=== PATIENT | female | born 1980 | race Caucasian/White ===

== ENCOUNTER 2019-12-07 01:59 | Emergency (ER) | payer OTHER, SELFPAY ==
[2019-12-07 02:10] VITALS: BP 120/81; PULSE 98; RESP 16; TEMP 37.4; O2SAT 94; BMI 29.8
--- NOTE | 2019-12-07 02:14 | XRR_ITS ---
PROCEDURE INFORMATION: Exam: XR Right Wrist Exam date and time: 12/07/2019 2:32 AM Age: 39 years old Clinical indication: Injury or trauma; Fall; Initial encounter; Blunt trauma (contusions or hematomas; Wrist; Right TECHNIQUE: Imaging protocol: XR Right wrist. Views: 3 or more views. COMPARISON: No relevant prior studies available. FINDINGS: Bones/joints: There is a transverse to slightly obliquely oriented fracture through the distal right radial metaphyseal region. No obvious extension into the radiocarpal joint surface. 2-3 mm of dorsal displacement of the distal fragment. I suspect there is also a subtle, nondisplaced fracture of the ulnar styloid. No other significant acute bone or joint abnormality. Carpal bones appear in satisfactory alignment. XR/XR wrist RT min 3V* [id number] IMPRESSION: 1. Fracture of the distal radius, details above. 2. Suspect a subtle, nondisplaced fracture of the ulnar styloid.
--- NOTE | 2019-12-07 02:20 | ED_ITS ---
HPI - Extremity Problem General: Chief complaint: Extremity Injury, Upper Stated complaint: fall/right wrist injury Time Seen by Provider: 12/07/19 02:13 Source: patient Mode of arrival: ambulatory Limitations: no limitations History of Present Illness: HPI Narrative: Patient comes in for injury to the right wrist. Patient states she slipped while getting out of the bathtub at home. Patient appears well. Patient reports dorsal wrist pain. No obvious deformity is noted. Patient states she takes metoprolol tartrate for her blood pressure. Review of Systems General: Reports: 10 or more systems reviewed and unremarkable except in HPI and below Musc: Reports: joint pain (Right wrist pain) PFS ED PFSH: Social History Smoking and tobacco status: current every day smoker Physical Exam Const: COMMON NORMALS: no acute distress and patient oriented x3 GENERAL APPEARANCE: cooperative HENMT: COMMON NORMALS: normocephalic, TM's normal bilaterally and Normal external nose present HEAD & SCALP: normal to inspection and normocephalic NOSE: Normal external nose present TYMPANIC MEMBRANE: TM's normal bilaterally MOUTH: Normal oral and palatal mucosa present THROAT: posterior oropharynx normal Eye: GENERAL EYE: appearance normal, both eyes and all related structures Neck/C-Spine: COMMON NORMALS: full ROM Lymph: LYMPHATIC: no lymphadenopathy noted Chest: COMMONS NORMALS: normal inspection of the chest Resp: COMMON NORMALS: normal respiratory effort EFFORT & INSPECTION: Yes able to speak in complete sentences Cardio: COMMON NORMALS: regular rate and regular rhythm RATE: regular rate RHYTHM: regular rhythm GI: COMMON NORMALS: non-tender : COMMON NORMALS: Yes no CVA tenderness BLADDER/KIDNEY EXAM: Yes no CVA tenderness Back/Pelvis: COMMON NORMALS: no CVA tenderness and thoracic and lumbar spine normal to inspection Extremity: NARRATIVE EXTREMITY EXAM: Minimal swelling is noted to the right wrist. Guarded movement. Positive pulses and distal cap refill are intact. No deformity is noted. Neuro: COMMON NORMALS: patient oriented x3 and moves all extremities Psych: COMMON NORMALS: mental status grossly normal and cooperative Skin: COMMON NORMALS: no rashes or lesions noted GENERAL SKIN EXAM: no rashes or lesions noted Course Vital Signs: Vital signs: Vital Signs Temperature 99.4 F 12/07/19 02:10 Pulse Rate 98 12/07/19 02:10 Respiratory Rate 16 12/07/19 02:10 Blood Pressure 120/81 12/07/19 02:10 Pulse Oximetry 94 12/07/19 02:10 MDM - Extremity (Nontraumatic) MDM Narrative: Medical decision making narrative: Patient comes in for injury to the right wrist. On exam patient has tenderness in the distal forearm right wrist area. Patient has reduced range of motion due to pain. Pulses are intact and prompt capillary refill is noted. Differential diagnosis includes but not limited to sprain, fracture, contusion. X-ray noted a distal fracture of the radius and ulnar styloid fracture. Patient was placed into a sugar tong splint and arrangements were made for patient to follow-up with orthopedics through case management. Patient reported understanding agreed to plan. Discharge Plan Discharge Patient Disposition: Home, Self-Care Clinical Impression: Fracture of wrist Qualifiers: Encounter type: initial encounter Fracture type: closed Laterality: right Qualified Code(s): S62.101A - Fracture of unspecified carpal bone, right wrist, initial encounter for closed fracture Condition: Stable Prescriptions: New hydrocodone-acetaminophen 5-325 mg tablet 1 tab PO Q8H PRN (Reason: pain) Qty: 7 RF: 0 Discharge Orders: Discharge Order (Routine); Ordered 12/07/19 Ordered By: Chevy Schmidt Referrals: Raza De La Rosa DO [Primary Care Provider] - Discharge Diet: Usual diet Discharge Activity: Increase activity as tolerated Patient Instructions: Wrist Fracture in Adults (ED) Activity Restrictions/Additional Instructions: Keep splint in place. Keep splint clean and dry. Use sling for comfort. Use Tylenol and ibuprofen for pain. Use hydrocodone for breakthrough pain. Case management will contact you for follow-up appointment with orthopedics. Coding Level of Care Code ED Pressure Testing Technician for Gemma Verma Exam Comprehensive
[2019-12-07] MEDS: HYDROcodone-acetaminophen 7.5-325 mg Tablet 1 TAB PO (02:42)
[2019-12-07 03:08] VITALS: RESP 16
--- NOTE | 2019-12-09 15:58 | DCPLANNER ---
valet manager had message to schedule a follow up appointment for patient with ortho. valet manager called the ortho clinic, spoke with Shobha, gave clinic patients information. valet manager was told that patients information would be printed and reviewed. Clinic will call spring encaser and patient with appointment information.
--- NOTE | 2019-12-10 08:12 | DCPLANNER ---
Patient has a follow up appointment scheduled for , December 11, 2019 at 8:[address] Miranda. Clinic will call patient with appointment information.
--- NOTE | 2019-12-25 12:39 | DCPLANNER ---
Patient attended appointment scheduled for 12.11.19 with ortho.
== END 2019-12-07 03:09 | disposition home or self-care (01) ==
PROVIDERS: Emergency Provider Nurse Practitioner Family; PCP Family Medicine
DX: S52.591A Other fractures of lower end of right radius, initial encounter for closed fracture (principal); W18.2XXA Fall in (into) shower or empty bathtub, initial encounter; F17.210 Nicotine dependence, cigarettes, uncomplicated
CPT/HCPCS: 12345; 29125; 73110; 99281; 99283

== ENCOUNTER → 2019-12-11 08:45 | Outpatient (BNVA) | payer OTHER, SELFPAY | PROVIDERS: PCP Family Medicine; Referring Provider Nurse Practitioner Family; Visit Provider Orthopaedic Surgery | DX: S62.101A Fracture of unspecified carpal bone, right wrist, initial encounter for closed fracture (principal); X58.XXXA Exposure to other specified factors, initial encounter | CPT/HCPCS: 73110 ==

== ENCOUNTER 2019-12-11 11:55 | Outpatient (CLI) | payer OTHER, SELFPAY | END 2019-12-11 11:56 | disposition home or self-care (01) | LOC: SPT 11:55 | PROVIDERS: PCP Family Medicine; Visit Provider Specialist | DX: Z46.89 Encounter for fitting and adjustment of other specified devices (principal); S52.551D Other extraarticular fracture of lower end of right radius, subsequent encounter for closed fracture with routine healing; X58.XXXD Exposure to other specified factors, subsequent encounter | CPT/HCPCS: 97760; L3982 ==

== ENCOUNTER → 2019-12-18 15:08 | Outpatient (BNVA) | payer OTHER, SELFPAY | PROVIDERS: PCP Family Medicine; Visit Provider Orthopaedic Surgery | DX: S62.101A Fracture of unspecified carpal bone, right wrist, initial encounter for closed fracture (principal); X58.XXXA Exposure to other specified factors, initial encounter | CPT/HCPCS: 73110 ==

== ENCOUNTER → 2020-01-01 15:30 | Outpatient (BNVA) | payer OTHER, SELFPAY | PROVIDERS: PCP Family Medicine; Visit Provider Orthopaedic Surgery | DX: S62.101A Fracture of unspecified carpal bone, right wrist, initial encounter for closed fracture (principal); S52.501A Unspecified fracture of the lower end of right radius, initial encounter for closed fracture; S52.591A Other fractures of lower end of right radius, initial encounter for closed fracture; X58.XXXA Exposure to other specified factors, initial encounter | CPT/HCPCS: 73110 ==

== ENCOUNTER 2020-09-12 22:38 | Emergency (ER) | payer OTHER, SELFPAY ==
[2020-09-12 22:44] VITALS: BP 163/102; PULSE 88; RESP 18; TEMP 36.7; O2SAT 98; BMI 27.4
--- NOTE | 2020-09-12 22:52 | XRR_ITS ---
PROCEDURE INFORMATION: Exam: XR Chest Exam date and time: 09/12/2020 11:09 PM Age: 40 years old Clinical indication: Type not specified; Patient HX: Chest pain post covid; Additional info: Cp TECHNIQUE: Imaging protocol: XR of the chest Views: 1 view. COMPARISON: No relevant prior studies available. FINDINGS: Lungs: No pneumonia or pulmonary edema. Pleural spaces: No pleural effusion or pneumothorax. Heart/Mediastinum: The cardiac silhouette is not enlarged. The mediastinal contours are normal. Bones/joints: No acute osseous abnormality. XR/XR chest 1V portable [id number] IMPRESSION: No acute abnormality.
[2020-09-12 22:53] VITALS: BP 159/98; PULSE 70; RESP 19; O2SAT 97
--- NOTE | 2020-09-12 22:53 | ECG_ITS ---
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
[2020-09-12 23:28] LABS: Basophils # 0.1 10^3/uL (0.0-0.1); Basophils % 0.8 %; Eosinophils # 0.1 10^3/uL (0.0-0.8); Hematocrit 41.6 % (37.0-47.0); Hemoglobin 13.9 g/dL (11.5-15.3); Lymphocytes # 3.3 10^3/uL (0.8-4.8); Lymphocytes % 51.9 %; Mean Corpuscular HGB Conc 33.4 g/dL (30.0-36.0); Mean Corpuscular Hemoglobin 32.6 pg (28.0-34.0); Mean Corpuscular Volume 97.7 fL (81-99); Mean Platelet Volume 10.5 fL (7.4-10.4); Monocytes # 0.5 10^3/uL (0.2-0.9); Monocytes % 8.1 %; Neutrophils # 2.37 10^3/uL (1.8-7.7); Neutrophils % 36.9 %; Nucleated Red Blood Cells % 0 %; Platelet Count 238 10^3/cmm (130-400); Red Blood Count 4.26 10^6/uL (4.1-5.3); Red Cell Distribution Width 11.7 % (12.1-15.1); White Blood Count 6.4 10^3/uL (4.0-10.0)
[2020-09-12 23:46] LABS: D Dimer 0.37 ug/mIFEU (0-0.59)
--- NOTE | 2020-09-12 23:46 | ED_ITS ---
HPI - Chest Pain General: Chief Complaint: Chest Pain Stated Complaint: chest pain post covid Time Seen by Provider: 09/12/20 22:52 History of Present Illness: HPI narrative: 89-year-old female who tested positive for Covid on September 03. She was quarantine until Sunday. She had previous symptoms of nasal congestion, exhaustion, loss of smell and taste, and diarrhea. She presents with chest pain that started last night. It is an ache that is in the left side of her chest and radiates to her left shoulder. She is somewhat short of breath with it. Deep breathing does not worsen the chest pain. No fever. Minimal cough. MD complaint: chest pain Pertinent past history: other Onset (ago): day(s) Timing of current episode: constant Prior episodes: No Onset: during rest Pain location: left chest Pain radiation: left shoulder Severity: moderate Quality: aching Relieving factors: nothing Exacerbating factors: nothing Context: recent illness Associated symptoms: Reports dyspnea; Deny abdominal pain, fever(s), leg edema, nausea, palpitations or vomiting Treatment prior to arrival: none Review of Systems Const: Denies: fever(s) Eyes: Denies: change in vision ENMT: Reports: sinus pain; Denies: odynophagia, swelling of lips/tongue or post nasal drip Card: Denies: palpitations Resp: Reports: dyspnea GI: Denies: abdominal pain, nausea or vomiting : Denies: dysuria or hematuria Musc: Denies: back pain Skin/Breast: Denies: rash or erythema Neuro: Reports: headache(s); Denies: dizziness or vertigo Psych: Denies: anxiety PFSH ED PFSH: Social History Smoking and tobacco status: current every day smoker Physical Exam Const: GENERAL APPEARANCE: well developed ORIENTATION/CONSCIOUSNESS: Yes oriented to person, Yes oriented to place and Yes oriented to time HENMT: COMMON NORMALS: normocephalic, external ears normal and Normal external nose present HEAD & SCALP: normocephalic FACE & SINUS: normal facial exam NOSE: Normal external nose present and No nasal discharge present EXTERNAL EAR: Yes external ears normal Eye: COMMON NORMALS: Equal, round and reactive pupils present, EOMs intact bilaterally and conjunctivae normal EYELID: eyelids normal CONJUNCTIVA: Yes conjunctivae normal PUPIL: Yes Equal, round and reactive pupils present Neck/C-Spine: GENERAL: No tracheal deviation Chest: COMMONS NORMALS: normal inspection of the chest CHEST: No tenderness Resp: COMMON NORMALS: clear to auscultation bilaterally EFFORT & INSPECTION: No tachypneic, No respiratory distress, No retractions, No uses accessory muscles and No tracheal deviation AUSCULTATION: clear to auscultation bilaterally, no rhonchi, no wheezes and lung sounds not diminished Cardio: COMMON NORMALS: regular rate and regular rhythm RATE: regular rate RHYTHM: regular rhythm HEART SOUNDS: no murmurs PERIPHERAL PULSES: radial pulses present GI: INSPECTION: No abdominal distension AUSCULTATION: No Hyperactive bowel sounds present and No Hypoactive bowel sounds present PALPATION: No Guarding due to palpation present (GI) and No Rigid due to palpation PERCUSSION: no dullness to percussion and no tympanic to percussion Neuro: SENSORIUM/ORIENTATION: Yes oriented to person, Yes oriented to place and Yes oriented to time Psych: COMMON NORMALS: mental status grossly normal Skin: COMMON NORMALS: no rashes or lesions noted GENERAL SKIN EXAM: no rashes or lesions noted Course Vital Signs: Vital signs: Vital Signs Temperature 98.1 F 09/13/20 01:20 Pulse Rate 87 09/13/20 01:32 Respiratory Rate 18 09/13/20 01:32 Blood Pressure 127/61 09/13/20 01:20 Pulse Oximetry 96 09/13/20 01:32 MDM - Chest Pain MDM Narrative: Medical decision making narrative: Chest x-ray is clear of infiltrate, although there is some perihilar streaking inflammation. Lab work including troponin and D-dimer is normal. Because of findings, she will go home on steroids. Inhaler if needed. She knows to return for any worsening symptoms. Lab Data: Labs: Lab Results 09/12/20 09/12/20 09/12/20 Range/Units 23:20 23:20 23:20 WBC 6.4 (4.0-10.0) 10^3/ uL RBC 4.26 (4.1-5.3) 10^6/u L Hgb 13.9 (11.5-15.3) g/dL Hct 41.6 (37.0-47.0) % MCV 97.7 (81-99) fL MCH 32.6 (28.0-34.0) pg MCHC 33.4 (30.0-36.0) g/dL RDW 11.7 L (12.1-15.1) % Plt Count 238 (130-400) 10^3/c mm MPV 10.5 H (7.4-10.4) fL Neut % (Auto) 36.9 % Lymph % (Auto) 51.9 % Collier % (Auto) 8.1 % Eos % (Auto) 2.0 % Baso % (Auto) 0.8 % Neut # (Auto) 2.37 (1.8-7.7) 10^3/u L Lymph # (Auto) 3.3 (0.8-4.8) 10^3/u L Collier # (Auto) 0.5 (0.2-0.9) 10^3/u L Eos # (Auto) 0.1 (0.0-0.8) 10^3/u L Baso # (Auto) 0.1 (0.0-0.1) 10^3/u L Nucleated RBC % (a uto) 0 % Nucleated RBCs # 0.0 /100WBC D-Dimer 0.37 (0-0.59) ug/mIFE U Sodium 139 (136-145) mmol/L Potassium 4.5 (3.5-5.1) mmol/L Chloride 106 (98-107) mmol/L Carbon Dioxide 23 (22-29) mmol/L Anion Gap 14.5 (5-19) BUN 15 (6-20) mg/dL Creatinine 0.9 (0.5-0.9) mg/dL GFR Calculation 70.1 L (90-130) mL/min Glucose 104 (65-115) mg/dL Calculated Osmolal ity 289 (285-295) mOsm/k g Calcium 9.1 (8.5-10.5) mg/dL Total Bilirubin 0.2 (0.15-1.2) mg/dL AST 59 H (0-32) U/L ALT 106 H (0-33) U/L Alkaline Phosphata se 74 (35-105) IU/L Creatine Kinase 52 (26-192) U/L Troponin T Baselin e (0-10) ng/L NT-Pro-B Natriuret Pep 72 (0-125) pg/mL Total Protein 6.6 (6.6-8.7) g/dL Albumin 4.2 (3.5-5.2) g/dL Globulin 2.4 (1.3-4.6) g/dL HCG, Qual (Negative) 09/12/20 09/12/20 Range/Units 23:20 23:49 WBC (4.0-10.0) 10^3/ uL RBC (4.1-5.3) 10^6/u L Hgb (11.5-15.3) g/dL Hct (37.0-47.0) % MCV (81-99) fL MCH (28.0-34.0) pg MCHC (30.0-36.0) g/dL RDW (12.1-15.1) % Plt Count (130-400) 10^3/c mm MPV (7.4-10.4) fL Neut % (Auto) % Lymph % (Auto) % Collier % (Auto) % Eos % (Auto) % Baso % (Auto) % Neut # (Auto) (1.8-7.7) 10^3/u L Lymph # (Auto) (0.8-4.8) 10^3/u L Collier # (Auto) (0.2-0.9) 10^3/u L Eos # (Auto) (0.0-0.8) 10^3/u L Baso # (Auto) (0.0-0.1) 10^3/u L Nucleated RBC % (a uto) % Nucleated RBCs # /100WBC D-Dimer (0-0.59) ug/mIFE U Sodium (136-145) mmol/L Potassium (3.5-5.1) mmol/L Chloride (98-107) mmol/L Carbon Dioxide (22-29) mmol/L Anion Gap (5-19) BUN (6-20) mg/dL Creatinine (0.5-0.9) mg/dL GFR Calculation (90-130) mL/min Glucose (65-115) mg/dL Calculated Osmolal ity (285-295) mOsm/k g Calcium (8.5-10.5) mg/dL Total Bilirubin (0.15-1.2) mg/dL AST (0-32) U/L ALT (0-33) U/L Alkaline Phosphata se (35-105) IU/L Creatine Kinase (26-192) U/L Troponin T Baselin e 6 (0-10) ng/L NT-Pro-B Natriuret Pep (0-125) pg/mL Total Protein (6.6-8.7) g/dL Albumin (3.5-5.2) g/dL Globulin (1.3-4.6) g/dL HCG, Qual Negative (Negative) Discharge Plan Discharge Patient Disposition: Home Clinical Impression: Acute bronchitis due to COVID-19 virus Condition: Stable Prescriptions: New dexamethasone 6 mg tablet 6 mg PO DAILY Qty: 5 RF: 0 albuterol sulfate 90 mcg/actuation HFA aerosol inhaler 2 inh inhalation Q4H PRN (Reason: shortness of breath or wheezing) Qty: 6.7 RF: 1 No Action (DME) Fast form cock up See Rx Instructions .Route .MEDSUPPLY Qty: 1 RF: 0 hydrocodone-acetaminophen 5-325 mg tablet 1 tab PO Q8H PRN (Reason: pain) Qty: 7 RF: 0 Discharge Orders: Discharge ED (Routine); Ordered 09/13/20 Ordered By: Nicola Finn Referrals: Raza De La Rosa, [Primary Care Provider] - 1-3 days Discharge Diet: Advance as tolerated Discharge Activity: Increase activity as tolerated Patient Instructions: Acute Bronchitis (ED) Activity Restrictions/Additional Instructions: Use the inhaler every 4 hours while awake for the first 48 hours, then as needed. Other medications as directed. Return for worsening chest discomfort or shortness of breath despite treatment, fever greater than 100, other concerning symptoms. Coding Level of Care Code ED Cellars Supervisor for Gemma Fwd Exam Comprehensive
[2020-09-12 23:50] VITALS: BP 126/94; PULSE 71; RESP 20; O2SAT 96
[2020-09-12 23:54] LABS: Troponin(5th) Baseline 6 ng/L (0-10)
[2020-09-13] VITALS: BP 142/80; PULSE 66; RESP 20; O2SAT 97
[2020-09-13 00:03] LABS: Alanine Aminotransferase 106 U/L (0-33); Albumin Level 4.2 g/dL (3.5-5.2); Alkaline Phosphatase 74 IU/L (35-105); Anion Gap 14.5 (5-19); Aspartate Amino Transferase 59 U/L (0-32); Blood Urea Nitrogen 15 mg/dL (6-20); Calcium 9.1 mg/dL (8.5-10.5); Carbon Dioxide 23 mmol/L (22-29); Chloride 106 mmol/L (98-107); Creatine Phosphokinase 52 U/L (26-192); Globulin 2.4 g/dL (1.3-4.6); Glomerular Filtration Rate 70.1 mL/min (90-130); Glucose 104 mg/dL (65-115); NT Pro B Type Natriuretic Pept 72 pg/mL (0-125); Osmolality Calculated 289 mOsm/kg (285-295); Potassium 4.5 mmol/L (3.5-5.1); Sodium 139 mmol/L (136-145); Total Bilirubin 0.2 mg/dL (0.15-1.2); Total Protein 6.6 g/dL (6.6-8.7)
[2020-09-13] MEDS: ketorolac 30 mg/mL INJ IVP (00:11)
[2020-09-13] MEDS: dexamethasone 4 mg/mL INJ 8 MG IVP (00:11)
[2020-09-13] MEDS: ondansetron 2 mg/ML SDV 2 mL 4 MG IVP (00:14)
[2020-09-13 00:26] LABS: HCG, Serum Qual Negative (Negative)
[2020-09-13 01:20] VITALS: BP 127/61; PULSE 67; RESP 20; TEMP 36.7; O2SAT 97
[2020-09-13] MEDS: albuterol 8 gm MDI 2 PUFF INHALATION (01:30)
[2020-09-13 01:32] VITALS: PULSE 87; RESP 18; O2SAT 96
== END 2020-09-13 01:32 | disposition home or self-care (01) ==
PROVIDERS: Emergency Provider Emergency Medicine; PCP Family Medicine
DX: U07.1 COVID-19 (principal); J20.8 Acute bronchitis due to other specified organisms; F17.210 Nicotine dependence, cigarettes, uncomplicated
CPT/HCPCS: 71045; 80053; 82550; 83880; 84484; 84703; 85025; 85378; 93005; 94640; 96374; 96375; 99284; J1100; J1885; J2405; J3535

== ENCOUNTER → 2020-11-16 08:31 | Outpatient (BNVA) | payer OTHER, SELFPAY | PROVIDERS: PCP Family Medicine; Visit Provider Nurse Practitioner Women's Health | DX: Z01.419 Encounter for gynecological examination (general) (routine) without abnormal findings (principal) | CPT/HCPCS: 88175 ==

== ENCOUNTER 2021-11-08 11:01 | Emergency (ER) | payer OTHER, SELFPAY ==
[2021-11-08 11:36] VITALS: BP 139/94; PULSE 97; RESP 14; TEMP 36.9; O2SAT 99; BMI 25.2
[2021-11-08 11:42] VITALS: BP 135/89; RESP 18; O2SAT 96
--- NOTE | 2021-11-08 11:44 | ED_ITS ---
HPI - Abdominal Pain General: Chief Complaint: Abdominal Pain Stated Complaint: Abdominal pain Time Seen by Provider: 11/08/21 11:44 History of Present Illness: Ms. Munoz is a 41-year-old lady with history of hypertension who presents to the emergency department due to right lower quad rant abdominal pain. Over the past few days she did note increased discomfort more in the epigastric region however over the past day and a half or so it migrated to the umbilicus and subsequently to the right lower quadrant. Cramping and aching in quality. Moderate to severe intensity. Worst pain was last night which was worse with movement and severe. She noted mild nausea however no vomiting. She has had intermittent constipation and loose stool with last bowel movement last night. She denies urinary symptoms, vaginal bleeding, vaginal discharge with last menstrual period approximately 2 weeks ago. Does have a history of kidney stones although reports that this feels different. D enies family history of frequent similar in the past. No other specific changes in health, exacerbating, or alleviating factors identified. She saw PCP today who was concerned regarding referred pain with palpation of right lower quadrant to the umbilical region and referred her to emergency department. Pertinent past history: none Onset (ago): day(s) Pain Consistency: constant Location: RLQ Severity: severe Quality: cramping and aching Exacerbating factors: movement Relieving factors: nothing Review of Systems General: Reports: 10 or more systems reviewed and unremarkable except in HPI and below PFSH ED PFSH: Medical History History of COVID-19 (~09/2020) Hypertension No pertinent past medical history neghx: dm,thyroid,dvt/pe PCP: Dr. De La Rosa Surgical History Hx of lithotripsy (~2011) Family History Daughter Thyroid disease Denies family history of Colon cancer Ovarian cancer Diabetes Heart disease Hypercholesteremia Breast cancer Hypertension Uterine cancer Stroke Social History Smoking and tobacco status: current every day smoker Physical Exam Const: COMMON NORMALS: alert GENERAL APPEARANCE: cooperative and well developed HENMT: COMMON NORMALS: normocephalic and atraumatic HEAD & SCALP: normocephalic and atraumatic Eye: COMMON NORMALS: conjunctivae normal CONJUNCTIVA: Yes conjunctivae normal SCLERA: sclerae normal Neck/C-Spine: COMMON NORMALS: supple GENERAL: Yes trachea midline Resp: COMMON NORMALS: normal respiratory effort EFFORT & INSPECTION: Yes able to speak in complete sentences Cardio: COMMON NORMALS: regular rate and regular rhythm RATE: regular rate RHYTHM: regular rhythm GI: COMMON NORMALS: Soft to palpation PALPATION: Yes Soft to palpation, Yes Tenderness to palpation present (GI) Details: RLQ, Yes Guarding due to palpation present (GI), No Rigid due to palpation and No Rebound tenderness present PERCUSSION: normal to percussion Extremity: GENERAL: Yes normal exam except as noted and No edema Neuro: COMMON NORMALS: moves all extremities SENSORIUM/ORIENTATION: Yes alert and No Orientation impaired Psych: COMMON NORMALS: mental status grossly normal and Normal thought process present THOUGHT PROCESS: Normal thought process present Course ED course: - Patient was seen and evaluated by me at bedside - Patient placed on cardiac monitors, IV access obtained - Initial evaluation notable for exam as above - Labs personally interpreted by me -Symptom treatment ordered - Labs notable for no leukocytosis, normal hemoglobin. Metabolic panel without acute derangement. Urinalysis without evidence of cause of symptoms. - Given physical exam findings and reported severity of symptoms I do feel that imaging is warranted. Patient wishes to proceed with imaging after discussion of risks. Imaging notable for no acute finding to explain symptoms. Cysts were discussed with the patient. - Upon serial reexamination after treatment the patient was improved - Based on patient history, evaluation, and testing as interpreted the most likely cause of the patient's condition is abdominal pain of uncertain etiology. - The results of ED evaluation were discussed with the patient including prescriptions and/or symptomatic cares (if applicable) including appropriate and responsible use, followup plan, and return precautions. The patient verbalized understanding and felt safe for discharge. - Patient discharged in satisfactory condition. Note: Click bubbles or prepopulated ozuna in note writing are used for assistance with data collection and billing and are inherently more limited than narrative and other text portions of this note. Please use narrative for additional clinical history and defer to narrative/free test for any case of contradictory information. If information appears in only free text or click bubble it should be considered present or absent as reported. Please contact note newspaper writer for clarifications of clinical information or contradictory information. MDM is a brief summary, contradictory or erroneous seeming information should be clarified and full note should be reviewed. Vital Signs: Vital signs: Vital Signs Temperature 98.5 F 11/08/21 11:36 Pulse Rate 97 11/08/21 11:36 Respiratory Rate 18 11/08/21 12:55 Blood Pressure 135/89 11/08/21 11:42 Pulse Oximetry 96 11/08/21 11:42 MDM - Abdominal Pain Medical Decision Making 41-year-old lady presenting with abdominal pain. No obvious cause identified on ED evaluation. Satisfactory for outpatient management Medical Records I reviewed the patient's medical records. Lab Data I reviewed the patient's lab results. : 11/08/21 11:55 11/08/21 11:55 Labs/Radiology: Radiology Impressions Abdomen/Pelvis CT 11/08/21 12:44 IMPRESSION: 1. Normal appendix in the RIGHT lower quadrant. No evidence of acute appendicitis. 2. No hydronephrosis in either kidney. 3. Peripheral enhancing LEFT ovarian cyst or corpus luteum cyst measuring 1.4 x 1.4 CM. Small amount of fluid in the cul-de-sac. Smaller peripheral enhancing RIGHT ovarian follicles. 4. Small amount of fluid in the endometrial canal and cervix. 5. Mild hepatomegaly with diffuse fatty infiltration liver Laboratory Results WBC 6.5 10^3/uL (4.0-10.0) 11/08/21 11:55 RBC 4.65 10^6/uL (4.1-5.3) 11/08/21 11:55 Hgb 15.1 g/dL (11.5-15.3) 11/08/21 11:55 Hct 45.4 % (37.0-47.0) 11/08/21 11:55 MCV 97.6 fl (81-99) 11/08/21 11:55 MCH 32.5 pg (28.0-34.0) 11/08/21 11:55 MCHC 33.3 g/dL (30.0-36.0) 11/08/21 11:55 RDW 11.8 % (12.1-15.1) L 11/08/21 11:55 Plt Count 273 10^3/cmm (130-400) 11/08/21 11:55 MPV 10.0 fL (7.4-10.4) 11/08/21 11:55 Neut % (Auto) 51.1 % 11/08/21 11:55 Lymph % (Auto) 36.9 % 11/08/21 11:55 [place] % (Auto) 8.4 % 11/08/21 11:55 Eos % (Auto) 2.3 % 11/08/21 11:55 Baso % (Auto) 1.1 % 11/08/21 11:55 Neut # (Auto) 3.30 10^3/uL (1.8-7.7) 11/08/21 11:55 Lymph # (Auto) 2.4 10^3/uL (0.8-4.8) 11/08/21 11:55 [place] # (Auto) 0.5 10^3/uL (0.2-0.9) 11/08/21 11:55 Eos # (Auto) 0.2 10^3/uL (0.0-0.8) 11/08/21 11:55 Baso # (Auto) 0.1 10^3/uL (0.0-0.1) 11/08/21 11:55 Nucleated RBC % (auto) 0 % 11/08/21 11:55 Nucleated RBCs # 0.0 /100WBC 11/08/21 11:55 Sodium 136 mmol/L (136-145) 11/08/21 11:55 Potassium 3.9 mmol/L (3.5-5.1) 11/08/21 11:55 Chloride 100 mmol/L (98-107) 11/08/21 11:55 Carbon Dioxide 23 mmol/L (22-29) 11/08/21 11:55 Anion Gap 16.9 (5-19) 11/08/21 11:55 BUN 19 mg/dL (6-20) 11/08/21 11:55 Creatinine 0.8 mg/dL (0.5-0.9) 11/08/21 11:55 GFR Calculation 79.9 mL/min (90-130) L 11/08/21 11:55 Glucose 90 mg/dL (65-115) 11/08/21 11:55 Calculated Osmolality 284 mOsm/kg (285-295) L 11/08/21 11:55 Calcium 9.6 mg/dL (8.5-10.5) 11/08/21 11:55 Total Bilirubin 0.2 mg/dL (0.15-1.2) 11/08/21 11:55 AST 17 U/L (0-32) 11/08/21 11:55 ALT 20 U/L (0-33) 11/08/21 11:55 Alkaline Phosphatase 63 IU/L (35-105) 11/08/21 11:55 Total Protein 8.1 g/dL (6.6-8.7) 11/08/21 11:55 Albumin 5.0 g/dL (3.5-5.2) 11/08/21 11:55 Globulin 3.1 g/dL (1.3-4.6) 11/08/21 11:55 Lipase 41 U/L (13-60) 11/08/21 11:55 HCG, Qual Negative (Negative) 11/08/21 14:07 Urine Color Yellow (Yellow) 11/08/21 11:22 Urine Appearance Clear (CLEAR) 11/08/21 11:22 Urine pH 6 (5-7) 11/08/21 11:22 Ur Specific [place] 1.015 (1.005-1.030) 11/08/21 11:22 Urine Protein Neg (Negative) 11/08/21 11:22 Urine Glucose (UA) Norm (Normal) 11/08/21 11:22 Urine Ketones Negative (Negative) 11/08/21 11:22 Urine Blood 2+ (Negative) H 11/08/21 11:22 Urine Nitrate Negative (Negative) 11/08/21 11:22 Urine Bilirubin Neg (Negative) 11/08/21 11:22 Urine Urobilinogen Norm mg/dL (Negative) 11/08/21 11:22 Ur Leukocyte Esterase Negative (Negative) 11/08/21 11:22 Urine RBC 0-4 /hpf (0-2) H 11/08/21 11:22 Urine WBC 0-4 /hpf (0-5) H 11/08/21 11:22 Ur Squamous Epith Cells 0-4 /hpf (0-5) H 11/08/21 11:22 Amorphous Sediment Not Reportable 11/08/21 11:22 Urine Bacteria None /hpf (NONE) 11/08/21 11:22 Discharge Plan Discharge Patient Disposition: Home Clinical Impression: Abdominal pain Condition: Stable Prescriptions: New ondansetron 4 mg tablet,disintegrating 4 mg PO Q8H PRN (Reason: nausea and vomiting) Qty: 15 0RF Discharge Orders: Discharge ED (Routine); Ordered 11/08/21 Ordered By: Jose Alfredo Thao Referrals: Raza De La Rosa DO [Primary Care Provider] - Discharge Diet: Advance as tolerated and Clear Liquid Discharge Activity: Increase activity as tolerated Patient Instructions: Abdominal Pain (ED), Opioid Safety Activity Restrictions/Additional Instructions: Thank you for visiting the emergency department. You were seen and evaluated for abdominal pain. The exact cause of your abdominal pain is unclear as no specific source was identified on CT scan or laboratory studies. You did have a small amount of blood in urine so it is possible that this was a recently passed kidney stone as discussed though I do not see secondary evidence of that. Please follow-up with your primary care provider. Please return to the emergency department for uncontrolled pain, worsening symptoms, inability to tolerate oral intake, or anything else that you are concerned about and feel needs emergency department evaluation. Coding Level of Care Code ED Dental Assisting Instructor for Gemma Fwabdulaziz Exam Comprehensive
[2021-11-08 12:08] LABS: Basophils # 0.1 10^3/uL (0.0-0.1); Basophils % 1.1 %; Eosinophils # 0.2 10^3/uL (0.0-0.8); Eosinophils % 2.3 %; Hematocrit 45.4 % (37.0-47.0); Hemoglobin 15.1 g/dL (11.5-15.3); Lymphocytes # 2.4 10^3/uL (0.8-4.8); Lymphocytes % 36.9 %; Mean Corpuscular HGB Conc 33.3 g/dL (30.0-36.0); Mean Corpuscular Hemoglobin 32.5 pg (28.0-34.0); Mean Corpuscular Volume 97.6 fl (81-99); Monocytes # 0.5 10^3/uL (0.2-0.9); Monocytes % 8.4 %; Neutrophils % 51.1 %; Nucleated Red Blood Cells % 0 %; Platelet Count 273 10^3/cmm (130-400); Red Blood Count 4.65 10^6/uL (4.1-5.3); Red Cell Distribution Width 11.8 % (12.1-15.1); White Blood Count 6.5 10^3/uL (4.0-10.0)
[2021-11-08] MEDS: sodium chloride 0.9% 1,000 ML 999 ML IV (12:08)
[2021-11-08 12:09] VITALS: RESP 18
[2021-11-08] MEDS: morphine 4 mg/mL SDV 1 mL IVP ×3 (12:09→14:17)
[2021-11-08 12:22] LABS: Bilirubin Urine Neg (Negative); Blood Urine 2+ (Negative); Glucose Urine UA Norm (Normal); Ketones Urine Negative (Negative); Nitrate Urine Negative (Negative); Protein Urine Neg (Negative); Specific Gravity, Urine 1.015 (1.005-1.030); Urine Appearance Clear (CLEAR); Urine Color Yellow (Yellow); pH Urine 6 (5-7)
[2021-11-08 12:23] LABS: Add Urine Microscopic? YES; Leukocyte Esterase Urine Negative (Negative); Urobilinogen Urine Norm (Negative)
[2021-11-08 12:24] LABS: Add Urine Culture? No; RBC Urine 0-4 /hpf (0-2); Squamous Epithelial Cell Urine 0-4 /hpf (0-5); WBC Urine 0-4 /hpf (0-5)
[2021-11-08 12:32] LABS: Alanine Aminotransferase 20 U/L (0-33); Alkaline Phosphatase 63 IU/L (35-105); Anion Gap 16.9 (5-19); Aspartate Amino Transferase 17 U/L (0-32); Blood Urea Nitrogen 19 mg/dL (6-20); Calcium 9.6 mg/dL (8.5-10.5); Carbon Dioxide 23 mmol/L (22-29); Chloride 100 mmol/L (98-107); Globulin 3.1 g/dL (1.3-4.6); Glomerular Filtration Rate 79.9 mL/min (90-130); Glucose 90 mg/dL (65-115); Lipase 41 U/L (13-60); Osmolality Calculated 284 mOsm/kg (285-295); Potassium 3.9 mmol/L (3.5-5.1); Sodium 136 mmol/L (136-145); Total Bilirubin 0.2 mg/dL (0.15-1.2); Total Protein 8.1 g/dL (6.6-8.7)
--- NOTE | 2021-11-08 12:44 | CT_ITS ---
WS: [id number] CT ABDOMEN PELVIS TECHNIQUE: Contrast-enhanced CT of the abdomen and pelvis with coronal and sagittal reformatted image s. CLINICAL INFORMATION: RLQ abdominal and flank pain, ?appy COMPARISON: CT 10 8,016 DLP: 880.[address] scans at [facility] use at least one of these dose optimization techniques: automated e xposure control; mA and/or kV adjustment per patient size (includes targeted exams where dose is matc hed to clinical indication); or iterative reconstruction. FINDINGS: Mild diffuse fatty infiltration of the liver with mild hepatomegaly. Normal portal vein and splenic v ein. Normal gallbladder. Normal spleen. Adrenal glands are normal. No hydronephrosis in either kidney . Small bilateral renal cysts. Normal caliber abdominal aorta. Normal celiac and SMA. Lung bases are well aerated. Small amount of free fluid in the pelvis. Normal sigmoid colon. No evidence of high-grade small or la rge bowel obstruction. Normal appendix. No evidence of acute appendicitis. Fluid within the endometri al canal and cervix. Enhancing LEFT ovarian cyst or corpus luteum cyst measuring 1.4 x 1.4 CM. Smalle r peripheral enhancing RIGHT ovarian follicles. Tiny fat-containing umbilical hernia. CT/CT abdomen pelvis w con* [id number] IMPRESSION: 1. Normal appendix in the RIGHT lower quadrant. No evidence of acute appendici tis. 2. No hydronephrosis in either kidney. 3. Peripheral enhancing LEFT ovarian cyst or corpus luteum cyst measuring 1.4 x 1.4 CM. Small amount of fluid in the cul-de-sac. Smaller peripheral enhancing RIGHT ovarian follicles. 4. Small amount of fluid in the endometrial canal and cervix. 5. Mild hepatomegaly with diffuse fatty infiltration liver
[2021-11-08 12:55] VITALS: RESP 18
[2021-11-08] MEDS: ondansetron 2 mg/ML SDV 2 mL 4 MG IVP ×2 (14:17→16:06)
[2021-11-08 14:18] LABS: HCG Qualitative Urine. Negative (Negative)
[2021-11-08] MEDS: ketorolac 30 mg/mL INJ 15 MG IVP (16:06)
== END 2021-11-08 16:16 | disposition home or self-care (01) ==
PROVIDERS: Emergency Provider Emergency Medicine; PCP Family Medicine
DX: R10.9 Unspecified abdominal pain (principal); I10 Essential (primary) hypertension; Z86.16 Personal history of COVID-19; Z87.442 Personal history of urinary calculi; F17.210 Nicotine dependence, cigarettes, uncomplicated
CPT/HCPCS: 74177; 80053; 81000; 81001; 81025; 83690; 85025; 96361; 96374; 96375; 96376; 99284; J1885; J2270; J2405; J7030

== ENCOUNTER → 2021-11-17 08:45 | Outpatient (BNVA) | payer OTHER, SELFPAY | PROVIDERS: PCP Family Medicine; Visit Provider Nurse Practitioner Women's Health | DX: Z01.419 Encounter for gynecological examination (general) (routine) without abnormal findings (principal); R31.9 Hematuria, unspecified | CPT/HCPCS: 87086; 87624 ==

== ENCOUNTER → 2023-07-11 14:49 | Outpatient (BNVA) | payer OTHER, SELFPAY | PROVIDERS: PCP Family Medicine; Visit Provider Nurse Practitioner | DX: J02.9 Acute pharyngitis, unspecified (principal) | CPT/HCPCS: 87880 ==

== ENCOUNTER 2023-07-28 12:06 | Observation (INO) | payer OTHER, SELFPAY ==
[2023-07-28] VITALS (18 sets, daily range): BP systolic 107–146; BP diastolic 63–85; PULSE 90–111; RESP 14–22; TEMP 36.4–37; O2SAT 94–99; BMI 28.3
--- NOTE | 2023-07-28 12:43 | CTR_ITS ---
PROCEDURE INFORMATION: Exam: CT Abdomen And Pelvis Without Contrast Exam date and time: 07/28/2023 1:58 PM Age: 43 years old Clinical indication: Abdominal pain; Localized; Right lower quadrant (rlq) TECHNIQUE: Imaging protocol: Computed tomography of the abdomen and pelvis without contrast. Radiation optimization: All CT scans at this facility use at least one of these dose optimization techniques: automated exposure control; mA and/or kV adjustment per patient size (includes targeted exams where dose is matched to clinical indication); or iterative reconstruction. COMPARISON: CT abdomen pelvis w con* [id number] 11/08/2021 2:36 PM RADIATION DOSE METRICS: Total DLP (mGy-cm): 513.16 FINDINGS: Lungs: No significant pathology at the imaged lung bases. Diaphragm: Small hiatal hernia. Liver: Hepatic steatosis. Gallbladder and bile ducts: No significant gallbladder pathology. No biliary dilatation. Pancreas: No significant pancreatic pathology. Spleen: No significant splenic pathology. Adrenal glands: No significant adrenal pathology. Kidneys and ureters: Mild bilateral renal cortical scarring. Stomach and bowel: Moderate amount of colonic stool. Colonic diverticulosis without evidence of focal inflammatory change. Appendix: Abnormal appearance of the appendix including enlargement up to 10 mm with increased luminal fluid, adjacent fat infiltration and appendicoliths (series 5, image 33 and 32) consistent with mild acute appendicitis. No perforation or abscess. Intraperitoneal space: Tiny amount of pelvic ascites. Vasculature: No abdominal aortic aneurysm. Lymph nodes: No enlarged nodes by criteria. Urinary bladder: No significant pathology. Reproductive: No significant uterine or adnexal pathology. Bones/joints: No significant bony pathology. Soft tissues: Small fat containing umbilical hernia. CT/CT abdomen pelvis wo con [id number] IMPRESSION: 1. Acute appendicitis. No perforation or abscess. 2. Minor findings including fatty change of the liver noted above.
--- NOTE | 2023-07-28 12:44 | USR_ITS ---
PROCEDURE INFORMATION: Exam: US Abdomen, Limited; Right Upper Quadrant Exam date and time: 07/28/2023 1:15 PM Age: 43 years old Clinical indication: Abdominal pain; Acute; Additional info: Abd pain TECHNIQUE: Imaging protocol: Real time ultrasound of the abdomen with image documentation. Limited exam focused on the right upper quadrant. COMPARISON: CT abdomen pelvis w con* [id number] 11/08/2021 2:36 PM FINDINGS: Liver: The liver is unremarkable. Gallbladder: No gallstones are detected. There is no gallbladder wall thickening or biliary ductal dilatation. Biliary ducts: See Gallbladder finding. Pancreas: No abnormality detected in the pancreatic head or body. Pancreatic tail was not imaged. Right kidney: No abnormalities detected in the right kidney. The right kidney measures 11.0 cm in length. Vascular structures: The included portions of the inferior vena cava and aorta are unremarkable Portal venous: The portal vein is patent with normal direction of flow. US/US gall bladder [id number] IMPRESSION: 1. Incomplete visualization of the pancreas 2. Right upper quadrant ultrasound otherwise unremarkable
--- NOTE | 2023-07-28 12:47 | W.ED.ABDPA2 ---
HPI - Abdominal Pain General: Chief Complaint: Abdominal Pain Stated Complaint: right side abd pain, N/V Time Seen by Provider: 07/28/23 12:40 Source: patient Mode of arrival: ambulatory History of Present Illness: 43-year-old female who presents to the emergency room with complaint of right-sided abdominal pain localizes to the right lower quadrant. Began about 2 days ago progressively worsened with nausea vomiting unable to eat or drink. Denies fever sweats chills denies dysuria urgency or frequency or hematuria [facility] ED PFSH: Medical History History of COVID-19 (~09/2020) No pertinent past medical history neghx: dm,thyroid,dvt/pe PCP: Dr. De La Rosa Hypertension She was dx 2015 but it was situational. She started metoprolol for that and her elevated HR. She stopped the metoprolol on her own in 2019. She denies any problems since that time. Surgical History Hx of lithotripsy (~2011) Family History Daughter Thyroid disease Denies family history of Colon cancer Ovarian cancer Diabetes Heart disease Hypercholesteremia Breast cancer Hypertension Uterine cancer Stroke Social History Smoking and tobacco/nicotine status: former use of tobacco/nicotine Quit status (tobacco/nicotine): has quit using Year quit tobacco: 2021 Course Vital Signs: Vital signs: Vital Signs Temperature 98.1 F 07/28/23 12:23 Pulse Rate 106 H 07/28/23 12:23 Respiratory Rate 17 07/28/23 14:06 Blood Pressure 107/63 07/28/23 12:23 Pulse Oximetry 97 07/28/23 14:06 Oxygen Delivery Me thod Room Air 07/28/23 12:23 MDM - Abdominal Pain Medical Decision Making Acute appendicitis. Unfortunately went back to the room to talk to the patient about the diagnosis and the CT findings she had been drinking water. She does the nurse earlier about eating or drinking the nurse advised her she could not because of the chief complaint of abdominal pain and pending CT report. Unfortunately at the patient's friend who is in the room brought her a bottle of water she has drank up about 8 ounces of water. I contacted Dr. Godinez about the patient's finding of appendicitis also called him back and advised him that the patient had been drinking water he will come and see the patient scheduled for surgery later today. Differential Diagnosis Likely abdominal pain, acute appendicitis, calculus of kidney and gastroenteritis Medical Records I reviewed the patient's medical records. Lab Data I reviewed the patient's lab results. 07/28/23 13:09 07/28/23 13:09 Labs/Radiology: Radiology Impressions Abdomen/Pelvis CT 07/28/23 12:43 IMPRESSION: 1. Acute appendicitis. No perforation or abscess. 2. Minor findings including fatty change of the liver noted above. ADDENDUM: 07/28/23 [id number] THIS REPORT CONTAINS FINDINGS THAT MAY BE CRITICAL TO PATIENT CARE. The findings were verbally communicated via telephone conference with BENJAMIN DE PAZ at 2:25 PM [employer] on 07/28/2023. The findings were acknowledged and understood. Gallbladder Ultrasound 07/28/23 12:44 IMPRESSION: 1. Incomplete visualization of the pancreas 2. Right upper quadrant ultrasound otherwise unremarkable Laboratory Results WBC 9.98 10^3/uL (3.29-11.43) 07/28/23 13:09 RBC 4.47 10^6/uL (3.85-5.65) 07/28/23 13:09 Hgb 14.20 g/dL (11.27-16.99) 07/28/23 13:09 Hct 42.6 % (36-47) 07/28/23 13:09 MCV 95.3 fl (85-98) 07/28/23 13:09 MCH 31.8 pg (27-33) 07/28/23 13:09 MCHC 33.3 g/dL (30-55) 07/28/23 13:09 RDW 11.6 % (12.1-15.1) L 07/28/23 13:09 Plt Count 276 10^3/cmm (157-399) 07/28/23 13:09 MPV 10.0 fL (7.4-10.4) 07/28/23 13:09 Neut % (Auto) 81.3 % 07/28/23 13:09 Lymph % (Auto) 10.9 % 07/28/23 13:09 [place] % (Auto) 6.1 % 07/28/23 13:09 Eos % (Auto) 0.8 % 07/28/23 13:09 Baso % (Auto) 0.5 % 07/28/23 13:09 Neut # (Auto) 8.11 10^3/uL (1.8-7.7) H 07/28/23 13:09 Lymph # (Auto) 1.1 10^3/uL (0.8-4.8) 07/28/23 13:09 [place] # (Auto) 0.6 10^3/uL (0.2-0.9) 07/28/23 13:09 Eos # (Auto) 0.1 10^3/uL (0.0-0.8) 07/28/23 13:09 Baso # (Auto) 0.1 10^3/uL (0.0-0.1) 07/28/23 13:09 Nucleated RBC % (auto) 0 % 07/28/23 13:09 Nucleated RBCs # 0.0 /100WBC 07/28/23 13:09 Sodium 138 mmol/L (136-145) 07/28/23 13:09 Potassium 4.4 mmol/L (3.5-5.1) 07/28/23 13:09 Chloride 101 mmol/L (98-107) 07/28/23 13:09 Carbon Dioxide 24 mmol/L (22-29) 07/28/23 13:09 Anion Gap 17.4 (5-19) 07/28/23 13:09 BUN 16 mg/dL (6-20) 07/28/23 13:09 Creatinine 0.8 mg/dL (0.5-0.9) 07/28/23 13:09 GFR Calculation 79.0 mL/min (90-130) L 07/28/23 13:09 Glucose 111 mg/dL (65-115) 07/28/23 13:09 Calculated Osmolality 288 mOsm/kg (285-295) 07/28/23 13:09 Calcium 9.2 mg/dL (8.5-10.5) 07/28/23 13:09 Total Bilirubin 0.4 mg/dL (0.15-1.2) 07/28/23 13:09 AST 17 U/L (0-32) 07/28/23 13:09 ALT 24 U/L (0-33) 07/28/23 13:09 Alkaline Phosphatase 64 U/L (35-105) 07/28/23 13:09 Total Protein 7.7 g/dL (6.6-8.7) 07/28/23 13:09 Albumin 4.3 g/dL (3.5-5.2) 07/28/23 13:09 Globulin 3.4 g/dL (1.3-4.6) 07/28/23 13:09 HCG, Qual Negative (Negative) 07/28/23 13:09 Urine Color Straw (Yellow) 07/28/23 13:43 Urine Appearance Clear (CLEAR) 07/28/23 13:43 Urine pH 8 (5-7) H 07/28/23 13:43 Ur Specific [place] 1.005 (1.005-1.030) 07/28/23 13:43 Urine Protein Neg (Negative) 07/28/23 13:43 Urine Glucose (UA) Norm (Normal) 07/28/23 13:43 Urine Ketones Negative (Negative) 07/28/23 13:43 Urine Blood Neg (Negative) 07/28/23 13:43 Urine Nitrate Positive (Negative) H 07/28/23 13:43 Urine Bilirubin Neg (Negative) 07/28/23 13:43 Prot Sulfosalicylic Acd Negative (Negative) 07/28/23 13:43 Urine Urobilinogen Norm mg/dL (Negative) 07/28/23 13:43 Ur Leukocyte Esterase 1+ (Negative) H 07/28/23 13:43 Urine RBC None /hpf (0-2) 07/28/23 13:43 Urine WBC 5-10 /hpf (0-5) H 07/28/23 13:43 Ur Squamous Epith Cells 5-10 /hpf (0-5) H 07/28/23 13:43 Amorphous Sediment Not Reportable 07/28/23 13:43 Urine Bacteria 2+ /hpf (NONE) H 07/28/23 13:43 All radiology interpretation(s) finalized by discharge Discharge Plan Discharge Patient Disposition: Admitted As Inpatient Admit Provider: Tex Godinez Clinical Impression: Acute appendicitis Condition: Stable Coding Level of Care Code ED Force Variation Equipment Tender for Gemma Verma
[2023-07-28] MEDS: morphine 4 mg/mL SDV 1 mL IVP ×4 (13:03→21:14)
[2023-07-28] MEDS: sodium chloride 0.9% 1,000 ML 999 ML IV (13:04)
[2023-07-28] MEDS: ondansetron 2 mg/ML SDV 2 mL 4 MG IVP ×2 (13:04→23:09)
[2023-07-28 13:27] LABS: Basophils # 0.1 10^3/uL (0.0-0.1); Basophils % 0.5 %; Eosinophils # 0.1 10^3/uL (0.0-0.8); Eosinophils % 0.8 %; Hematocrit 42.6 % (36-47); Lymphocytes # 1.1 10^3/uL (0.8-4.8); Lymphocytes % 10.9 %; Mean Corpuscular HGB Conc 33.3 g/dL (30-55); Mean Corpuscular Hemoglobin 31.8 pg (27-33); Mean Corpuscular Volume 95.3 fl (85-98); Monocytes # 0.6 10^3/uL (0.2-0.9); Monocytes % 6.1 %; Neutrophils # 8.11 10^3/uL (1.8-7.7); Neutrophils % 81.3 %; Nucleated Red Blood Cells % 0 %; Platelet Count 276 10^3/cmm (157-399); Red Blood Count 4.47 10^6/uL (3.85-5.65); Red Cell Distribution Width 11.6 % (12.1-15.1); White Blood Count 9.98 10^3/uL (3.29-11.43)
[2023-07-28 13:46] LABS: HCG, Serum Qual Negative (Negative)
[2023-07-28 13:55] LABS: Alanine Aminotransferase 24 U/L (0-33); Albumin Level 4.3 g/dL (3.5-5.2); Alkaline Phosphatase 64 U/L (35-105); Aspartate Amino Transferase 17 U/L (0-32); Blood Urea Nitrogen 16 mg/dL (6-20); Calcium 9.2 mg/dL (8.5-10.5); Carbon Dioxide 24 mmol/L (22-29); Chloride 101 mmol/L (98-107); Globulin 3.4 g/dL (1.3-4.6); Glucose 111 mg/dL (65-115); Osmolality Calculated 288 mOsm/kg (285-295); Sodium 138 mmol/L (136-145); Total Bilirubin 0.4 mg/dL (0.15-1.2); Total Protein 7.7 g/dL (6.6-8.7)
[2023-07-28 14:00] LABS: Anion Gap 17.4 (5-19); Potassium 4.4 mmol/L (3.5-5.1)
[2023-07-28 14:02] LABS: Urine Appearance Clear (CLEAR); Urine Color Straw (Yellow); pH Urine 8 (5-7)
[2023-07-28 14:03] LABS: Add Urine Culture? Yes; Add Urine Microscopic? YES; Bacteria Urine 2+ /hpf; Bilirubin Urine Neg (Negative); Blood Urine Neg (Negative); Glucose Urine UA Norm (Normal); Ketones Urine Negative (Negative); Leukocyte Esterase Urine 1+ (Negative); Nitrate Urine Positive (Negative); Protein Urine Neg (Negative); Specific Gravity, Urine 1.005 (1.005-1.030); Sulfosalicylic Acid Urine Negative (Negative); Urobilinogen Urine Norm (Negative)
[2023-07-28] MEDS: ketorolac 30 mg/mL INJ IVP (14:06)
--- NOTE | 2023-07-28 14:36 | PC.PHAR ---
pt states she takes care of her own medications-pt states she takes 0.125mg of clonazepam at bedtime ext shows last filled 05/25/23 30d/s 0.5mg daily-pt states she stop taking her metoprolol tartrate 25mg bid filled on 04/24/23 30d/s states stop taking 2 months ago-
--- NOTE | 2023-07-28 14:45 | PC.NURSE ---
After starting patient's IV and just prior to Tyshawn starting to do the patient's ultrasound, the patient asked if she could have something to drink, I told her no. The patient then asked if she could have some water, I told she could not have anything at all to eat or drink in case they found something on the ultrasound or the CT and she might need surgery.
--- NOTE | 2023-07-28 14:48 | PC.NURSE ---
Dr. Bach went into to tell the patient that she had acute appendicitis and that she would need to have surgery today. When Dr. Bach entered into the room and the patient was drinking water out of a water bottle. Dr. Bach took the water bottle away from the patient at 1430 and explained to the patient that she could have nothing to eat or drink to have her surgery.
[2023-07-28] MEDS: piperacillin-tazobactam 3.375 GM in sodium chloride 0.9% (plus) 50 ML IV ×2 (15:20→22:01)
[2023-07-28] MEDS: sodium chlor 0.9% + KCl 20 mEq 20 MEQ/1,000 ML BAG 150 MEQ IV (15:20)
--- NOTE | 2023-07-28 18:09 | PC.NURSE ---
Pt taken down to OR at this time.
--- NOTE | 2023-07-28 18:41 | P.HP_ITS ---
Providers/Chief Complaint 2 Admitting Physician: Tex Godinez MD Primary Care Provider: Raza De La Rosa DO Chief Complaint: right side abd pain, N/V History of Present Illness Regina Munoz is a 43 year old female who presents with 24 hours of abdominal pain that initially started in the periumbilical region and localized to the right lower quadrant. Patient also states that she has been having some chills, but no significant fever. She came to the ER earlier today CT scan of the abdomen pelvis confirmed the diagnosis of acute appendicitis and therefore I was consulted. Review of Systems 2 General: Reports: 10 or more systems reviewed and unremarkable except in HPI and below Medications/Allergies Home Medications Medication Instructions Recorded Confirmed Last Taken Type clonazepam 0.5 mg tablet 0.125 mg PO BEDTIME 07/28/23 07/28/23 07/27/23 History escitalopram oxalate 20 mg tablet 20 mg PO BEDTIME 07/28/23 07/28/23 Unknown History esomeprazole magnesium 40 mg 40 mg PO BEDTIME gerd 07/28/23 07/28/23 Unknown History capsule,delayed release ibuprofen 200 mg tablet 800 mg PO TID PRN Pain 07/28/23 07/28/23 Unknown History magnesium oxide 400 mg PO BEDTIME 07/28/23 07/28/23 Unknown History Allergies Allergy/AdvReac Type Severity Reaction Status Date / Time No Known Allergies Allergy Verified 07/28/23 14:36 PFSH Acute 2 PFSH: Medical History History of COVID-19 (~09/2020) No pertinent past medical history neghx: dm,thyroid,dvt/pe PCP: Dr. De La Rosa Hypertension She was dx 2015 but it was situational. She started metoprolol for that and her elevated HR. She stopped the metoprolol on her own in 2019. She denies any problems since that time. Surgical History Hx of lithotripsy (~2011) Family History Daughter Thyroid disease Denies family history of Colon cancer Ovarian cancer Diabetes Heart disease Hypercholesteremia Breast cancer Hypertension Uterine cancer Stroke Social History Smoking and tobacco/nicotine status: former use of tobacco/nicotine Quit status (tobacco/nicotine): has quit using Year quit tobacco: 2021 Vitals/I&O/Wt Last Vital Signs Temp 98.0 F 07/28/23 18:20 Pulse 100 07/28/23 18:20 Resp 20 H 07/28/23 18:20 BP 133/80 07/28/23 18:20 Pulse Ox 98 07/28/23 18:20 O2 Del Method Room Air 07/28/23 17:53 07/28/23 07/28/23 07/28/23 06:59 14:59 22:59 Intake Total 1050 / 1050 Balance 1050 / 1050 Weight last 48 hrs Weight 155 lb Weight 146 lb Physical Exam 2 Narrative: General : Patient is well developed , no acute distress, oriented x3 Head : Normal cephalic, a-traumatic. Nose : Mucous membranes are without erythema. Lungs : Equal chest rise bilaterally, no use of accessory muscles, trachea is midline. CV : Rate and rhythm are normal. Abdomen : Abdomen soft, there is tenderness in the right lower quadrant. McBurney positive, no rebound tenderness, Rovsing negative. Extremities : No edema. Upper extremities are normal bilaterally. Back : non-tender to palpation, no CVA tenderness. Data 07/28/23 13:09 07/28/23 13:09 A&P Assessment and plan (1) Acute appendicitis: Plan After complete history, physical examination and review of all available clinical data the following is my assessment. Patient has clinical picture consistent with acute appendicitis. Imaging shows evidence of moderate amount of inflammation with no suspected perforation. Patient has been initiated on antibiotics and IV fluids. I think laparoscopic appendectomy is indicated. All the risk and benefits of the procedure were discussed with the patient including the risk of injury to adjacent structures including the small bowel colon ureter gonadal vessels and large vessels of the abdomen. We have also discussed the risk of infection both superficial and deep space and the risk of bleeding. After discussion of risk and benefits patient agrees and wishes to proceed. Patient will be taken to the OR this afternoon. Plan is for discharge after surgery. Attestations 2 Medical Necessity Statement*: Plan is for discharge after surgery today. Coding Level of Care Code Acute Code for [facility] Diagnoses Acute appendicitis K35.80
--- NOTE | 2023-07-28 19:09 | P.ANESASSM_ITS ---
Pre-Anesthetic Assessment Height/Weight: Height 1.57 m Weight 70.307 kg Temp Pulse Resp BP Pulse Ox O2 Del Method 98.0 F 100 20 H 133/80 98 Room Air 07/28/23 18:20 07/28/23 18:20 07/28/23 18:20 07/28/23 18:20 07/28/23 18:20 07/28/23 17:53 Preop Diagnosis: Appendicitis Operation Date: 07/28/23 19:50 Proposed Procedures p Laparoscopic Appendectomy(Right) - Tex Godinez MD Was Beta Amanda taken within 24 hours: N/A Was Clonidine taken within 24 hours: N/A Last intake: Intake Last Liquid Date 07/28/23 Last Liquid Time 14:30 Last Solid Date 07/27/23 Last Solid Time 18:00 Social No alcohol and No tobacco Exam alert, oriented x 3, clear to auscultation bilaterally and regular rate & rhythm Airway Cervical ROM: within normal limits Mallampati: Class II Dentition: full History/ROS No significant history except as noted and No significant complaints CV/HEM Arrythmia Hx tachycardia Hx stones Hepatic None reported GI None reported Metabolic None reported Musc/skel None reported Neuropsych Anxiety Anesthetic Plan ASA status: 2 Anesthesia: Anesthesia Evaluation and General Risk of > 500 ml blood loss (7ml/kg in children): No Medications/Allergies Home Medications Medication Instructions Recorded Confirmed Last Taken Type clonazepam 0.5 mg tablet 0.125 mg PO BEDTIME 07/28/23 07/28/23 07/27/23 History escitalopram oxalate 20 mg tablet 20 mg PO BEDTIME 07/28/23 07/28/23 Unknown History esomeprazole magnesium 40 mg 40 mg PO BEDTIME gerd 07/28/23 07/28/23 Unknown History capsule,delayed release ibuprofen 200 mg tablet 800 mg PO TID PRN Pain 07/28/23 07/28/23 Unknown History magnesium oxide 400 mg PO BEDTIME 07/28/23 07/28/23 Unknown History Allergies Allergy/AdvReac Type Severity Reaction Status Date / Time No Known Allergies Allergy Verified 07/28/23 14:36 Current Medications Generic Name Dose Route Start Last Admin Trade Name Freq PRN Reason Stop Dose Admin Potassium Chloride/Sodium Chloride 20 meq in 1,000 mls @ 150 mls/hr 07/28/23 14:30 07/28/23 15:20 Sodium Chlor 0.9% + Kcl 20 Meq IV 150 mls/hr .[id number] YOGESH Administration Morphine Sulfate 4 mg 07/28/23 16:21 07/28/23 16:42 Morphine 4 Mg/Ml Sdv 1 Ml IVP 4 mg Q4H PRN Administration SEVERE PAIN PFSH Anesthesia Medical History History of COVID-19 (~09/2020) No pertinent past medical history neghx: dm,thyroid,dvt/pe PCP: Dr. De La Rosa Hypertension She was dx 2015 but it was situational. She started metoprolol for that and her elevated HR. She stopped the metoprolol on her own in 2019. She denies any problems since that time. Surgical History Hx of lithotripsy (~2011) Family History Daughter Thyroid disease Denies family history of Colon cancer Ovarian cancer Diabetes Heart disease Hypercholesteremia Breast cancer Hypertension Uterine cancer Stroke Social History Smoking and tobacco/nicotine status: former use of tobacco/nicotine Quit status (tobacco/nicotine): has quit using Year quit tobacco: 2021 Data Anesthesia 07/28/23 13:09 07/28/23 13:09 Short CBC 07/28/23 Range/Units 13:09 WBC 9.98 (3.29-11.43) 10^3/uL Hgb 14.20 (11.27-16.99) g/dL Hct 42.6 (36-47) % MCV 95.3 (85-98) fl Plt Count 276 (157-399) 10^3/cmm Neut % (Auto) 81.3 % Neut # (Auto) 8.11 H (1.8-7.7) 10^3/uL BMP 07/28/23 13:09 Sodium 138 Potassium 4.4 Chloride 101 Carbon Dioxide 24 BUN 16 Creatinine 0.8 Glucose 111 Calcium 9.2 Liver Function 07/28/23 Range/Units 13:09 Total Bilirubin 0.4 (0.15-1.2) mg/dL AST 17 (0-32) U/L ALT 24 (0-33) U/L Alkaline Phosphatase 64 (35-105) U/L Albumin 4.3 (3.5-5.2) g/dL Urine 07/28/23 Range/Units 13:43 Urine Color Straw (Yellow) Urine Appearance Clear (CLEAR) Urine pH 8 H (5-7) Ur Specific [place] 1.005 (1.005-1.030) Urine Protein Neg (Negative) Urine Glucose (UA) Norm (Normal) Urine Ketones Negative (Negative) Urine Nitrate Positive H (Negative) Urine Bilirubin Neg (Negative) Ur Leukocyte Esterase 1+ H (Negative) Urine RBC None (0-2) /hpf Urine WBC 5-10 H (0-5) /hpf Cardiac Studies: 2 No Data to Display
[2023-07-28] MEDS: BUPivacaine 0.25% INJ 10 mL INJECTION (19:34)
[2023-07-28] MEDS: lidocaine-epi 1% 20 mL INJ INJECTION (19:34)
--- NOTE | 2023-07-28 20:07 | PM.OP ---
Operative Report Date of procedure: July 28, 2023 Pre-op diagnosis: Appendicitis Post-op diagnosis: Same Post-op findings: There was acute appendicitis with inflammation at the tip of the appendix, there was an early phlegmon formation between these inflamed area and the omentum. The base of the appendix appeared healthy. Procedure done: Laparoscopic appendectomy. Specimens removed/disposition: Appendix Surgeon: Tex Godinez MD Real Estate Sales Associate: [facility] Estimated blood loss: 5 Complications: none Brief History: 43-year-old female with acute appendicitis verified by imaging. Laparoscopic appendectomy was indicated, all risk and benefits were discussed and documented in my preop note. Procedure: Patient was brought into the OR, she was placed in a supine position. General esthesia was given. The abdomen was prepped and draped in the usual sterile fashion. Timeout was conducted. The abdomen was accessed via infraumbilical incision measuring 12 mm with open technique, a 2 mm Carlson trocar was placed and fixed to the fascia with #0 Vicryl. Initial pneumoperitoneum was obtained and no evidence of visceral injury was noted. Additional trocars were placed in the suprapubic and left lower quadrant position under direct visualization. The patient was positioned on Trendelenburg and left tilt. An inflammatory phlegmon was noted in the right lower quadrant, this was formed by the omentum and appendix, with blunt dissection I was able to separate the appendix from the omentum, no evidence of bleeding was noted after this maneuver. I then proceeded to take down the mesoappendix from the tip of the appendix to the base using LigaSure. The base of the appendix appeared completely healthy, I then proceeded to transect the appendix at the level of the base using a 45 mm blue load Endo CLARI stapler. The appendix was retrieved via the umbilical trocar site in an Endo Catch bag and sent to pathology. The staple line appeared healthy and no evidence of active bleeding was noted. I then introduced a Ray-Esther into the abdomen to remove a small amount of excess fluid in the pelvis and in the appendix bed, the ray-esther was immediately removed from the abdomen after this. I then proceeded to close the umbilical trocar site using 0 Vicryl in a Ruben-Herbert suture passer under direct visualization. The suprapubic trocar was also removed under direct visualization and the left lower quadrant trocar was used to evacuate the pneumoperitoneum and subsequently removed. The wounds were closed in layers using #4 Monocryl for the skin and Dermabond was applied. At the end of the procedure all counts were correct. The patient tolerated well the procedure and was transferred to the PACU in stable condition.
--- NOTE | 2023-07-28 21:04 | ANE.PACU2 ---
Inpatient post-anesthesia follow up: Airway intact: Yes Vital signs: Temperature 98.1 F Pulse Rate 100 Respiratory Rate 17 Blood Pressure 122/75 Pulse Oximetry 94 Oxygen Delivery Me thod Room Air Oxygen Flow Rate Fraction of Inspir ed Oxygen Hydration adequate: Yes Nausea and vomiting: No Pain level: 1 Mental status: Baseline
[2023-07-28] MEDS: CLONazepam 0.5 mg Tablet 0.125 MG PO (21:19)
[2023-07-28] MEDS: pantoprazole 40 mg SDV IVP (21:20)
[2023-07-28] MEDS: ketorolac 30 mg/mL INJ 15 MG IVP (21:20)
[2023-07-28] MEDS: HYDROmorphone 1 mg/mL INJ 1 mL IVP (22:35)
[2023-07-29] MEDS: ketorolac 30 mg/mL INJ 15 MG IVP ×2 (02:58→09:12)
[2023-07-29 04:00] VITALS: BP 105/64; PULSE 102; RESP 17; TEMP 36.9; O2SAT 94
[2023-07-29] MEDS: ondansetron 2 mg/ML SDV 2 mL 4 MG IVP (04:13)
[2023-07-29 06:31] VITALS: RESP 17
[2023-07-29] MEDS: HYDROmorphone 1 mg/mL INJ 1 mL IVP ×2 (06:31→12:37)
[2023-07-29] MEDS: piperacillin-tazobactam 3.375 GM in sodium chloride 0.9% (plus) 50 ML IV (06:32)
[2023-07-29 08:00] VITALS: BP 131/73; PULSE 104; RESP 19; TEMP 36.4; O2SAT 94
--- NOTE | 2023-07-29 10:26 | PM.DCS ---
Discharge Providers Date of Admission: 07/28/23 18:44 Date of Discharge: July 29, 2023 Attending Provider at Admission: Tex Godinez MD Attending Provider at Discharge: Tex Godinez MD Primary Care Provider: Raza De La Rosa DO Diagnoses at Discharge Discharge Diagnosis (1) Acute appendicitis: Details from hospital stay: 43-year-old female who presented to the hospital with acute appendicitis. Laparoscopic appendectomy was done without complications. Postoperative day 1 patient was tolerating diet, ambulating and with good pain control. Patient will be discharged home and will follow-up with me in the clinic. Status: Acute Reason for Visit Reason for Visit: right side abd pain, N/V Physical Exam Narrative: General : Patient is well developed , no acute distress, oriented x3 Head : Normal cephalic, a-traumatic. Nose : Mucous membranes are without erythema. Lungs : Equal chest rise bilaterally, no use of accessory muscles, trachea is midline. CV : Rate and rhythm are normal. Abdomen : Soft, appropriately tender to palpation, surgical incisions covered with Dermabond. Extremities : No edema. Upper extremities are normal bilaterally. Back : non-tender to palpation, no CVA tenderness. Discharge Data Studies Completed and Pending Completed Studies During Hospitalization Category Date Time Status CT abdomen pelvis wo con [id number] Stat Cat Scan 07/28/23 12:43 Completed US gall bladder [id number] Stat Ultrasound 07/28/23 12:44 Completed Pending at discharge Category Date Time Status Urine Culture Stat Lab 07/28/23 13:43 Results Pathology: Surgical [PTH] Routine Pth 07/28/23 20:06 Ordered Radiology Impressions Abdomen/Pelvis CT 07/28/23 12:43 IMPRESSION: 1. Acute appendicitis. No perforation or abscess. 2. Minor findings including fatty change of the liver noted above. ADDENDUM: 07/28/23 1426 THIS REPORT CONTAINS FINDINGS THAT MAY BE CRITICAL TO PATIENT CARE. The findings were verbally communicated via telephone conference with BENJAMIN DE PAZ at 2:25 PM ARCHITECTURAL DRAFTING INSTRUCTOR on 07/28/2023. The findings were acknowledged and understood. Gallbladder Ultrasound 07/28/23 12:44 IMPRESSION: 1. Incomplete visualization of the pancreas 2. Right upper quadrant ultrasound otherwise unremarkable Laboratory Results WBC 9.98 10^3/uL (3.29-11.43) 07/28/23 13:09 RBC 4.47 10^6/uL (3.85-5.65) 07/28/23 13:09 Hgb 14.20 g/dL (11.27-16.99) 07/28/23 13:09 Hct 42.6 % (36-47) 07/28/23 13:09 MCV 95.3 fl (85-98) 07/28/23 13:09 MCH 31.8 pg (27-33) 07/28/23 13:09 MCHC 33.3 g/dL (30-55) 07/28/23 13:09 RDW 11.6 % (12.1-15.1) L 07/28/23 13:09 Plt Count 276 10^3/cmm (157-399) 07/28/23 13:09 MPV 10.0 fL (7.4-10.4) 07/28/23 13:09 Neut % (Auto) 81.3 % 07/28/23 13:09 Lymph % (Auto) 10.9 % 07/28/23 13:09 [place] % (Auto) 6.1 % 07/28/23 13:09 Eos % (Auto) 0.8 % 07/28/23 13:09 Baso % (Auto) 0.5 % 07/28/23 13:09 Neut # (Auto) 8.11 10^3/uL (1.8-7.7) H 07/28/23 13:09 Lymph # (Auto) 1.1 10^3/uL (0.8-4.8) 07/28/23 13:09 [place] # (Auto) 0.6 10^3/uL (0.2-0.9) 07/28/23 13:09 Eos # (Auto) 0.1 10^3/uL (0.0-0.8) 07/28/23 13:09 Baso # (Auto) 0.1 10^3/uL (0.0-0.1) 07/28/23 13:09 Nucleated RBC % (auto) 0 % 07/28/23 13:09 Nucleated RBCs # 0.0 /100WBC 07/28/23 13:09 Sodium 138 mmol/L (136-145) 07/28/23 13:09 Potassium 4.4 mmol/L (3.5-5.1) 07/28/23 13:09 Chloride 101 mmol/L (98-107) 07/28/23 13:09 Carbon Dioxide 24 mmol/L (22-29) 07/28/23 13:09 Anion Gap 17.4 (5-19) 07/28/23 13:09 BUN 16 mg/dL (6-20) 07/28/23 13:09 Creatinine 0.8 mg/dL (0.5-0.9) 07/28/23 13:09 GFR Calculation 79.0 mL/min (90-130) L 07/28/23 13:09 Glucose 111 mg/dL (65-115) 07/28/23 13:09 Calculated Osmolality 288 mOsm/kg (285-295) 07/28/23 13:09 Calcium 9.2 mg/dL (8.5-10.5) 07/28/23 13:09 Total Bilirubin 0.4 mg/dL (0.15-1.2) 07/28/23 13:09 AST 17 U/L (0-32) 07/28/23 13:09 ALT 24 U/L (0-33) 07/28/23 13:09 Alkaline Phosphatase 64 U/L (35-105) 07/28/23 13:09 Total Protein 7.7 g/dL (6.6-8.7) 07/28/23 13:09 Albumin 4.3 g/dL (3.5-5.2) 07/28/23 13:09 Globulin 3.4 g/dL (1.3-4.6) 07/28/23 13:09 HCG, Qual Negative (Negative) 07/28/23 13:09 Urine Color Straw (Yellow) 07/28/23 13:43 Urine Appearance Clear (CLEAR) 07/28/23 13:43 Urine pH 8 (5-7) H 07/28/23 13:43 Ur Specific [place] 1.005 (1.005-1.030) 07/28/23 13:43 Urine Protein Neg (Negative) 07/28/23 13:43 Urine Glucose (UA) Norm (Normal) 07/28/23 13:43 Urine Ketones Negative (Negative) 07/28/23 13:43 Urine Blood Neg (Negative) 07/28/23 13:43 Urine Nitrate Positive (Negative) H 07/28/23 13:43 Urine Bilirubin Neg (Negative) 07/28/23 13:43 Prot Sulfosalicylic Acd Negative (Negative) 07/28/23 13:43 Urine Urobilinogen Norm mg/dL (Negative) 07/28/23 13:43 Ur Leukocyte Esterase 1+ (Negative) H 07/28/23 13:43 Urine RBC None /hpf (0-2) 07/28/23 13:43 Urine WBC 5-10 /hpf (0-5) H 07/28/23 13:43 Ur Squamous Epith Cells 5-10 /hpf (0-5) H 07/28/23 13:43 Amorphous Sediment Not Reportable 07/28/23 13:43 Urine Bacteria 2+ /hpf (NONE) H 07/28/23 13:43 Vitals Last Vital Signs Temp 97.6 F 07/29/23 08:00 Pulse 104 H 07/29/23 08:00 Resp 19 H 07/29/23 08:00 BP 131/73 07/29/23 08:00 Pulse Ox 94 07/29/23 08:00 O2 Del Method Room Air 07/29/23 08:00 Discharge Plan Discharge Patient Disposition: Home Condition: Stable Prescriptions: New meloxicam 7.5 mg tablet 7.5 mg PO DAILY Qty: 7 0RF amoxicillin-pot clavulanate 875-125 mg tablet 1 tab PO BID Qty: 10 0RF oxycodone 5 mg tablet 5 mg PO Q8H PRN (Reason: pain (scale score 7-10)) Qty: 14 0RF docusate sodium 100 mg capsule 100 mg PO BID Qty: 20 0RF Continued magnesium oxide 400 mg magnesium Tablet 400 mg PO BEDTIME clonazepam 0.5 mg tablet 0.125 mg PO BEDTIME esomeprazole magnesium 40 mg capsule,delayed release(DR/EC) 40 mg PO BEDTIME escitalopram oxalate 20 mg tablet 20 mg PO BEDTIME Discontinued ibuprofen 200 mg Tablet 800 mg PO TID PRN (Reason: Pain) Discharge Orders: Discharge Order (Routine); Ordered 07/29/23 Ordered By: Tex Godinez Referrals: Raza De La Rosa DO [Primary Care Provider] - Tex Godinez MD [Physician] - (2 weeks) Discharge Diet: Advance as tolerated Discharge Activity: Limit activity as instructed Patient Instructions: Opioid Safety, Post Anesthesia Care Activity Restrictions/Additional Instructions: No heavy lifting for 6 weeks. You can shower starting tomorrow, let soap and water run over your wounds and then pat dry. Walk is much as possible to prevent blood clots in your legs and to improve your recovery. This will also improve your bowel function. Return to the hospital you have fever chills severe abdominal pain discharge from your wounds. Discharge Attestations Time Spent in Discharge Care*: less than 30 min Quality Metrics Clinical Quality Measures [ No reported AMI, CVA or VTE this stay] Coding Level of Care Code Acute Code for [facility] F[facility] Diagnoses Acute appendicitis K35.80
[2023-07-29 12:12] VITALS: BP 130/78; PULSE 106; RESP 18; TEMP 36.7; O2SAT 97
[2023-07-29 12:37] VITALS: RESP 18; O2SAT 97
--- NOTE | 2023-07-29 13:20 | PC.NURSE ---
Discussed new medications, discontinued medications and follow up appointments with patient and spouse. Discussed activities and lifting restrictions. Patient verbalized understanding.
[2023-07-29 13:26] VITALS: RESP 18; O2SAT 97
== END 2023-07-29 12:51 | disposition home or self-care (01) ==
LOC: ER 15:57 → MEDSURG 16:11
PROVIDERS: Admitting Provider Surgery; Emergency Provider Family Medicine; PCP Family Medicine; Visit Provider Surgery
PROC: 0DTJ4ZZ Resection of Appendix, Percutaneous Endoscopic Approach (ICD-10-PCS; CPT 44970; principal; 2023-07-28 19:30)
DX: K35.80 Unspecified acute appendicitis (principal); Z86.16 Personal history of COVID-19; I10 Essential (primary) hypertension; Z87.891 Personal history of nicotine dependence
CPT/HCPCS: 44970; 74176; 76705; 80053; 81001; 84703; 85025; 87077; 87086; 87186; 88304; 96361; 96365; 96366; 96367; 96375; 96376; 99285; C9113; G0378; J0131; J1100; J1170; J1885; J2270; J2405; J2543; J2704; J2710; J3010; J3480; J3490; J7030

== ENCOUNTER 2023-08-28 12:20 | Outpatient (CLI) | payer OTHER, SELFPAY ==
[2023-08-28] MEDS: iohexol 350 mg/mL 500 mL Btl (per mL) PO (12:31)
--- NOTE | 2023-08-28 13:00 | CT_ITS ---
WS: [id number] CT ABDOMEN PELVIS TECHNIQUE: Contrast-enhanced CT of the abdomen and pelvis with coronal and sagittal reformatted image s. CLINICAL INFORMATION: K43.9 - Ventral hernia without obstruction or gangrene COMPARISON: 07/28/2023 DLP: 351.[address] scans at [facility] use at least one of these dose optimization techniques: automated e xposure control; mA and/or kV adjustment per patient size (includes targeted exams where dose is matc hed to clinical indication); or iterative reconstruction. FINDINGS: Interval postoperative changes appendectomy. No evidence of abscess or fluid collection in the RIGHT lower quadrant. Normal cecum. Normal ileocecal valve. Hepatomegaly. Diffuse fatty infiltration of the liver. Normal spleen. Normal GE junction. Normal panc reatic parenchymal enhancement. Adrenal glands are normal. Bilateral renal cortical scarring is uncha nged. No hydronephrosis in either kidney. Lung bases are well aerated. Normal gallbladder. Normal por anita vein and splenic vein. Visualized pancreas appears normal. Normal caliber abdominal aorta. Celiac and SMA are patent. Normal sigmoid colon. No evidence of high-grade small or large bowel obstruction. Tiny fat-containing umbilical hernia. Small peripheral enhancing LEFT corpus luteum cyst measuring 1.9 x 1.2 cm. No sign ificant free fluid in the pelvis. Several low-attenuation tiny lesions at the cervix may represent nabothian cysts but indeterminate. R ecommend further evaluation with pelvic ultrasound. IMPRESSION: 1. Interval postoperative changes resection of the appendix. No evidence of abscess or fluid collect ion. No free fluid in the RIGHT lower quadrant. No suspicious findings in the RIGHT lower quadrant. 2. Hepatomegaly diffuse fatty filtration of the liver. 3. Mild bilateral renal cortical scarring. No hydronephrosis. 4. Peripherally enhancing LEFT corpus luteum cyst measures 1.8 x 1.2 cm. 5. Normal sigmoid colon. 6. Tiny fat-containing umbilical hernia. 7. Slight heterogeneity at the cervix may present nabothian cysts but indeterminant. This can be fol lowed up with pelvic ultrasound. 8. No other suspicious findings.
[2023-08-28] MEDS: iohexol 350 mg/mL 100 mL Btl IV (13:42)
== END 2023-08-28 12:21 | disposition home or self-care (01) ==
LOC: RAD 12:20
PROVIDERS: PCP Family Medicine; Visit Provider Surgery
DX: K43.9 Ventral hernia without obstruction or gangrene (principal); Z90.89 Acquired absence of other organs; K76.0 Fatty (change of) liver, not elsewhere classified; R16.0 Hepatomegaly, not elsewhere classified; N83.12 Corpus luteum cyst of left ovary; K42.9 Umbilical hernia without obstruction or gangrene; R93.89 Abnormal findings on diagnostic imaging of other specified body structures
CPT/HCPCS: 74177; Q9967

== ENCOUNTER → 2023-09-26 16:05 | Outpatient (BNVA) | payer OTHER, SELFPAY | PROVIDERS: PCP Family Medicine; Visit Provider Nurse Practitioner | DX: R10.9 Unspecified abdominal pain (principal) | CPT/HCPCS: 81000 ==

== ENCOUNTER 2023-11-22 13:45 | Emergency (ER) | payer OTHER, SELFPAY ==
[2023-11-22 13:49] VITALS: BP 162/92; PULSE 85; RESP 18; TEMP 36.6; O2SAT 94
--- NOTE | 2023-11-22 13:52 | CT_ITS ---
WS: [id number] CT HEAD TECHNIQUE: Noncontrast CT of the head obtained from the skullbase to the vertex. CLINICAL INFORMATION: Symptoms of acute stroke COMPARISON: MRI 2013 DLP: [address] scans at [facility] use at least one of these dose optimization techniques: automated e xposure control; mA and/or kV adjustment per patient size (includes targeted exams where dose is matc hed to clinical indication); or iterative reconstruction. FINDINGS: No evidence of intracranial hemorrhage or mass effect. Ventricular system and basal cisterns are garcia nt. No extra-axial fluid collections. No evidence of mass or mass effect. Normal webb-white differen tiation. Paranasal sinuses and mastoid air cells are well aerated. .Normal visualized soft tissues. CT/CT head thrombolytic [id number] IMPRESSION: 1. No evidence of intracranial hemorrhage or mass effect. 2. No acute intracranial findings. Notified Giovanny Bach DO at 11/22/2023 2:02 PM.
--- NOTE | 2023-11-22 13:59 | ED_ITS ---
HPI - Neuro Symptoms/Deficit 2 General: Chief Complaint: Neuro Symptoms/Deficit Stated Complaint: Left side numbness Time Seen by Provider: 11/22/23 13:52 Source: patient Mode of arrival: ambulatory History of Present Illness: 43-year-old female presents emergency ro om with complaints of left-sided numbness most predominantly in the face interestingly she states that it is more prominent on the upper portion of the left side of her face. At 1 point she made the comment that the outside of her skin felt normal and the inside of her cheek felt normal but in between the tissue felt abnormal or swollen. She states she has had headaches last couple of nights. She usually is able to treat them with [id number] medications. Yesterday the patient had dental work but it was done on the right side of her face. No fever sweats or chills no headache at this time. Onset (ago): hour(s) Last Observed Normal: 13:00 Location: left face, left arm and left leg Quality: numb Relieving factors: none Exacerbating factors: none Associated symptoms: Deny chest pain, cough, diaphoresis, fevers/chills, headache(s), anorexia, malaise, nausea, seizures, short of breath, syncope, tingling, vertigo, vomiting or weakness Treatments Prior to Arrival: none Review of Systems 2 Const: Denies: malaise or diaphoresis Card: Denies: chest pain or syncope Resp: Denies: dyspnea GI: Denies: nausea or vomiting : Denies: dysuria, urinary frequency or urinary urgency Musc: Denies: neck pain or back pain Skin/Breast: Denies: rash Neuro: Denies: headache(s) or vertigo [facility] ED 2 PFSH: Medical History Appendicitis dr. cintron History of COVID-19 (~09/2020) No pertinent past medical history neghx: dm,thyroid,dvt/pe PCP: Dr. De La Rosa Hypertension She was dx 2015 but it was situational. She started metoprolol for that and her elevated HR. She stopped the metoprolol on her own in 2019. She denies any problems since that time. Surgical History Hx of lithotripsy (~2011) Family History Daughter Thyroid disease Denies family history of Colon cancer Ovarian cancer Diabetes Heart disease Hypercholesteremia Breast cancer Hypertension Uterine cancer Stroke Social History Smoking and tobacco/nicotine status: former use of tobacco/nicotine Quit status (tobacco/nicotine): has quit using Year quit tobacco: 2021 NIH stroke score 2 NIHSS: Level Of Consciousness - 1a: 0 Level Of Consciousness Questions - 1b: Both Correct Level Of Consciousness Commands - 1c: Both Correct Best Gaze - 2: Normal Visual Roa - 3: No Visual Loss Facial Palsy - 4: N ormal Motor Arm Right - 5: No Drift Motor Arm Left - 5: No Drift Motor Leg Right - 6: No Drift Motor Leg Left - 6: No Drift Limb Ataxia - 7: A bsent Sensory - 8: Mild To Moderate Loss Best Language - 9: No Aphasia Dysarthia - 10: Normal Extinction And Inattention - 11: 0 Score: Total Score: 1 Physical Exam 2 Const: COMMON NORMALS: no acute distress GENERAL APPEARANCE: cooperative and comfortable ORIENTATION/CONSCIOUSNESS: Yes awake, Yes oriented to person, Yes oriented to place and Yes oriented to time HENMT: COMMON NORMALS: normocephalic, atraumatic and hearing grossly normal bilaterally HEAD & SCALP: normocephalic and atraumatic Resp: COMMON NORMALS: normal respiratory effort, No retractions, No use of accessory muscles and clear to auscultation bilaterally AUSCULTATION: clear to auscultation bilaterally Cardio: COMMON NORMALS: regular rate, regular rhythm and No murmurs present (Cardio) RATE: regular rate RHYTHM: regular rhythm GI: COMMON NORMALS: Soft to palpation and No hepatosplenomegaly present A USCULTATION: Yes normoactive bowel sounds PALPATION: Yes Soft to palpation, No Tenderness to palpation present (GI), No Guarding due to palpation present (GI) and Yes No hepatosplenomegaly present Extremity: COMMON NORMALS: normal to inspection, capillary refill normal, no clubbing, cyanosis or edema, no calf tenderness and no pedal edema Neuro: SENSORIUM/ORIENTATION: Yes oriented to person, Yes oriented to place and Yes oriented to time Skin: COMMON NORMALS: no rashes or lesions noted GENERAL SKIN EXAM: no rashes or lesions noted Course 2 Vital Signs: Vital signs: Vital Signs Temperature 98 F 11/22/23 13:49 Pulse Rate 94 11/22/23 15:25 Respiratory Rate 18 11/22/23 13:49 Blood Pressure 120/89 11/22/23 15:25 Pulse Oximetry 98 11/22/23 15:25 Oxygen Delivery Me thod Room Air 11/22/23 14:15 MDM - Neuro Symptoms/Deficit Medical Decision Making All her symptoms have completely resolved. CT was negative. She had mentioned at one point that only the upper portion of her face seemed numb not the lower portion I think it is just a branch of the facial nerve that was causing problems with him not sure why her hand and leg were also slightly decreased but all of her symptoms now have resolved. Discharge patient home with baby aspirin daily and follow-up with neurology. Medical Records I reviewed the patient's medical records. Lab Data I reviewed the patient's lab results. 11/22/23 14:07 11/22/23 14:[address] 11/22/23 13:52 IMPRESSION: 1. No evidence of intracranial hemorrhage or mass effect. 2. No acute intracranial findings. Notified Giovanny Bach DO at 11/22/2023 2:02 PM. Laboratory Results WBC 7.10 10^3/uL (3.29-11.43) 11/22/23 14:07 RBC 4.58 10^6/uL (3.85-5.65) 11/22/23 14:07 Hgb 14.70 g/dL (11.27-16.99) 11/22/23 14:07 Hct 43.3 % (36-47) 11/22/23 14:07 MCV 94.5 fl (85-98) 11/22/23 14:07 MCH 32.1 pg (27-33) 11/22/23 14:07 MCHC 33.9 g/dL (30-55) 11/22/23 14:07 RDW 11.7 % (12.1-15.1) L 11/22/23 14:07 Plt Count 289 10^3/cmm (157-399) 11/22/23 14:07 MPV 9.7 fL (7.4-10.4) 11/22/23 14:07 Neut % (Auto) 63.6 % 11/22/23 14:07 Lymph % (Auto) 27.9 % 11/22/23 14:07 [place] % (Auto) 6.1 % 11/22/23 14:07 Eos % (Auto) 1.5 % 11/22/23 14:07 Baso % (Auto) 0.8 % 11/22/23 14:07 Neut # (Auto) 4.51 10^3/uL (1.8-7.7) 11/22/23 14:07 Lymph # (Auto) 2.0 10^3/uL (0.8-4.8) 11/22/23 14:07 [place] # (Auto) 0.4 10^3/uL (0.2-0.9) 11/22/23 14:07 Eos # (Auto) 0.1 10^3/uL (0.0-0.8) 11/22/23 14:07 Baso # (Auto) 0.1 10^3/uL (0.0-0.1) 11/22/23 14:07 Nucleated RBC % (auto) 0 % 11/22/23 14:07 Nucleated RBCs # 0.0 /100WBC 11/22/23 14:07 PT 12.30 SECONDS (12.1-14.9) 11/22/23 14:07 INR 0.89 (0.8-1.2) 11/22/23 14:07 APTT 25.8 SECONDS (23.9-36.7) 11/22/23 14:07 Sodium 136 mmol/L (136-145) 11/22/23 14:07 Potassium 3.8 mmol/L (3.5-5.1) 11/22/23 14:07 Chloride 100 mmol/L (98-107) 11/22/23 14:07 Carbon Dioxide 23 mmol/L (22-29) 11/22/23 14:07 Anion Gap 16.8 (5-19) 11/22/23 14:07 BUN 16 mg/dL (6-20) 11/22/23 14:07 Creatinine 1.0 mg/dL (0.5-0.9) H 11/22/23 14:07 GFR Calculation 61.1 mL/min (90-130) L 11/22/23 14:07 Glucose 108 mg/dL (65-115) 11/22/23 14:07 POC Glucose 122 mg/dL (70-110) H 11/22/23 13:57 Calculated Osmolality 284 mOsm/kg (285-295) L 11/22/23 14:07 Calcium 9.5 mg/dL (8.5-10.5) 11/22/23 14:07 Total Bilirubin 0.2 mg/dL (0.15-1.2) 11/22/23 14:07 AST 31 U/L (0-32) 11/22/23 14:07 ALT 57 U/L (0-33) H 11/22/23 14:07 Alkaline Phosphatase 62 U/L (35-105) 11/22/23 14:07 Total Protein 8.2 g/dL (6.6-8.7) 11/22/23 14:07 Albumin 4.6 g/dL (3.5-5.2) 11/22/23 14:07 Globulin 3.6 g/dL (1.3-4.6) 11/22/23 14:07 Urine Color Yellow (Yellow) 11/22/23 14:54 Urine Appearance Sl hazy (CLEAR) A 11/22/23 14:54 Urine pH 6 (5-7) 11/22/23 14:54 Ur Specific [place] 1.015 (1.005-1.030) 11/22/23 14:54 Urine Protein Neg (Negative) 11/22/23 14:54 Urine Glucose (UA) Norm (Normal) 11/22/23 14:54 Urine Ketones Negative (Negative) 11/22/23 14:54 Urine Blood Neg (Negative) 11/22/23 14:54 Urine Nitrate Negative (Negative) 11/22/23 14:54 Urine Bilirubin Neg (Negative) 11/22/23 14:54 Urine Urobilinogen Norm mg/dL (Negative) 11/22/23 14:54 Ur Leukocyte Esterase Negative (Negative) 11/22/23 14:54 Urine RBC 0-4 /hpf (0-2) H 11/22/23 14:54 Urine WBC 0-4 /hpf (0-5) H 11/22/23 14:54 Ur Squamous Epith Cells 10-15 /hpf (0-5) H 11/22/23 14:54 Ur Transition Epith Cell 0-4 /hpf 11/22/23 14:54 Amorphous Sediment Not Reportable 11/22/23 14:54 Urine Bacteria 1+ /hpf (NONE) H 11/22/23 14:54 Urine Mucus None /hpf 11/22/23 14:54 Urine Opiates Screen Negative ng/mL (Negative) 11/22/23 14:54 Ur Barbiturates Screen Negative ng/mL (Negative) 11/22/23 14:54 Ur Phencyclidine Scrn Negative ng/mL (Negative) 11/22/23 14:54 Ur Amphetamines Screen Negative ng/mL (Negative) 11/22/23 14:54 U Benzodiazepines Scrn Negative ng/mL (Negative) 11/22/23 14:54 Urine Cocaine Screen Negative ng/mL (Negative) 11/22/23 14:54 U Marijuana (THC) Screen Negative ng/mL (Negative) 11/22/23 14:54 All radiology interpretation(s) finalized by discharge Discharge Plan Discharge Patient Disposition: Home Clinical Impression: Migraine variant, Left facial numbness Condition: Stable Prescriptions: New aspirin 81 mg tablet,delayed release (DR/EC) 81 mg PO DAILY Qty: 30 0RF No Action magnesium oxide 400 mg magnesium tablet 400 mg PO BEDTIME Qty: 1 0RF esomeprazole magnesium 20 mg capsule,delayed release(DR/EC) 40 mg PO DAILY Qty: 90 1RF clonazepam 0.5 mg tablet 0.125 mg PO BEDTIME oxycodone 5 mg tablet 5 mg PO Q8H PRN (Reason: pain (scale score 7-10)) Qty: 14 0RF ondansetron 4 mg tablet,disintegrating 4 mg PO Q6H PRN (Reason: nausea and vomiting) Qty: 14 0RF escitalopram oxalate 20 mg tablet 20 mg PO DAILY metoprolol tartrate 25 mg tablet 25 mg PO BID docusate sodium 100 mg capsule 100 mg PO BID PRN (Reason: Constipation) Discharge Orders: Discharge ED (Routine); Ordered 11/22/23 Ordered By: Giovanny Bach Referrals: Raza De La Rosa DO [Primary Care Provider] - Discharge Diet: Usual diet Discharge Activity: Increase activity as tolerated Patient Instructions: Opioid Safety, Pain Management Activity Restrictions/Additional Instructions: Thank you for choosing [facility] for your healthcare needs today. Please realize this is an emergency room and that we are providing you with a medical screening exam and this may not be complete and all inclusive of all the testing and or work up that you may need to determine your ailment or severity of your illness. It is very important that you follow up as instructed or that you return to the Emergency Department should you have concerns or if your condition changes or worsens in any way. You were seen today with left-sided facial numbness which resolved while you were here. Your head CT was negative. This may be a migraine variant may also be a facial nerve palsy which was transient. Since your symptoms have resolved and your stroke score at best was only a [address] neurologist did not recommend any interventions. Recommend that you follow-up with neurology case management will make arrangements for this follow-up. Coding Level of Care Code ED Loom Checker for Gemma Verma
[2023-11-22 14:00] LABS: Glucose Point of Care 122 mg/dL (70-110)
--- NOTE | 2023-11-22 14:00 | ECG_ITS ---
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 Measurements Intervals [place] Rate: 107 P: 62 [place]: 129 QRS: 64 QRSD: 81 T: 40 QT: 311 QTc: 417 Interpretive Statements SINUS TACHYCARDIA NONSPECIFIC ST & T-WAVE ABNORMALITY ABNORMAL RHYTHM ECG Compared to ECG 09/12/2020 22:54:48 T-wave abnormality now present Sinus rhythm no longer present Electronically Signed On 11-23-2023 0:06:52 CDT by Meka Garza M.D. [id number]
[2023-11-22 14:14] LABS: Basophils # 0.1 10^3/uL (0.0-0.1); Basophils % 0.8 %; Eosinophils # 0.1 10^3/uL (0.0-0.8); Eosinophils % 1.5 %; Hematocrit 43.3 % (36-47); Lymphocytes % 27.9 %; Mean Corpuscular HGB Conc 33.9 g/dL (30-55); Mean Corpuscular Hemoglobin 32.1 pg (27-33); Mean Corpuscular Volume 94.5 fl (85-98); Mean Platelet Volume 9.7 fL (7.4-10.4); Monocytes # 0.4 10^3/uL (0.2-0.9); Monocytes % 6.1 %; Neutrophils # 4.51 10^3/uL (1.8-7.7); Neutrophils % 63.6 %; Nucleated Red Blood Cells % 0 %; Platelet Count 289 10^3/cmm (157-399); Red Blood Count 4.58 10^6/uL (3.85-5.65); Red Cell Distribution Width 11.7 % (12.1-15.1)
[2023-11-22 14:15] VITALS: BP 155/104; PULSE 105; O2SAT 98
--- NOTE | 2023-11-22 14:17 | PC.PHAR ---
PHARMACY SHOWS MAINTENANCE MEDICATION LAST FILL DATES WERE IN AUGUST AND SEPTEMBER.
[2023-11-22 14:25] LABS: INR 0.89 (0.8-1.2)
[2023-11-22 14:26] LABS: Partial Thromboplastin Time 25.8 SECONDS (23.9-36.7)
[2023-11-22 14:30] LABS: Alanine Aminotransferase 57 U/L (0-33); Albumin Level 4.6 g/dL (3.5-5.2); Alkaline Phosphatase 62 U/L (35-105); Anion Gap 16.8 (5-19); Aspartate Amino Transferase 31 U/L (0-32); Blood Urea Nitrogen 16 mg/dL (6-20); Calcium 9.5 mg/dL (8.5-10.5); Carbon Dioxide 23 mmol/L (22-29); Chloride 100 mmol/L (98-107); Creatinine Clr Calc Pharmacy 67.3649; Globulin 3.6 g/dL (1.3-4.6); Glomerular Filtration Rate 61.1 mL/min (90-130); Glucose 108 mg/dL (65-115); Osmolality Calculated 284 mOsm/kg (285-295); Potassium 3.8 mmol/L (3.5-5.1); Sodium 136 mmol/L (136-145); Total Bilirubin 0.2 mg/dL (0.15-1.2); Total Protein 8.2 g/dL (6.6-8.7)
[2023-11-22 15:06] LABS: Protein Urine Neg (Negative); Specific Gravity, Urine 1.015 (1.005-1.030); Urine Appearance SL Hazy (CLEAR); Urine Color Yellow (Yellow); pH Urine 6 (5-7)
[2023-11-22 15:07] LABS: Add Urine Microscopic? YES; Bilirubin Urine Neg (Negative); Blood Urine Neg (Negative); Glucose Urine UA Norm (Normal); Ketones Urine Negative (Negative); Leukocyte Esterase Urine Negative (Negative); Nitrate Urine Negative (Negative); Urobilinogen Urine Norm (Negative)
[2023-11-22 15:15] LABS: Add Urine Culture? No; Bacteria Urine 1+ /hpf; RBC Urine 0-4 /hpf (0-2); Transitional Epi Cells Urine 0-4 /hpf; WBC Urine 0-4 /hpf (0-5)
[2023-11-22 15:16] LABS: Amphetamines Screen Urine Negative (Negative); Barbiturates Screen Urine Negative (Negative); Benzodiazepines Screen Urine Negative (Negative); Cocaine Screen Urine Negative (Negative); Opiate Screen Urine Negative (Negative); PCP Screen Urine Negative (Negative); THC Screen Urine Negative (Negative)
[2023-11-22 15:25] VITALS: BP 120/89; PULSE 94; O2SAT 98
--- NOTE | 2023-11-22 16:23 | DCPLANNER ---
message sent to neuro for er f/u
== END 2023-11-22 15:29 | disposition home or self-care (01) ==
PROVIDERS: Emergency Provider Family Medicine; PCP Family Medicine
DX: G43.809 Other migraine, not intractable, without status migrainosus (principal); R20.0 Anesthesia of skin
CPT/HCPCS: 36416; 70450; 80053; 80306; 81001; 82962; 85025; 85610; 85730; 93005; 99284

== ENCOUNTER 2024-05-21 13:27 | Outpatient (CLI) | payer OTHER, SELFPAY ==
[2024-05-21 14:03] LABS: Basophils # 0.1 10^3/uL (0.0-0.1); Basophils % 1.3 %; Eosinophils # 0.2 10^3/uL (0.0-0.8); Eosinophils % 3.3 %; Hematocrit 40.5 % (36-47); Lymphocytes # 2.2 10^3/uL (0.8-4.8); Mean Corpuscular HGB Conc 32.6 g/dL (30-55); Mean Corpuscular Hemoglobin 31.3 pg (27-33); Mean Platelet Volume 9.6 fL (7.4-10.4); Monocytes # 0.5 10^3/uL (0.2-0.9); Monocytes % 6.8 %; Neutrophils # 4.03 10^3/uL (1.8-7.7); Neutrophils % 57.3 %; Nucleated Red Blood Cells % 0 %; Platelet Count 243 10^3/cmm (157-399); Red Blood Count 4.22 10^6/uL (3.85-5.65); Red Cell Distribution Width 11.9 % (12.1-15.1); White Blood Count 7.03 10^3/uL (3.29-11.43)
[2024-05-21 14:16] LABS: D Dimer 0.36 ug/mLFEU (0-0.59)
[2024-05-21 14:20] LABS: Erythrocyte Sedimentation Rate 9 mm/hr (0-15)
[2024-05-21 14:34] LABS: Alanine Aminotransferase 57 U/L (0-33); Albumin Level 4.3 g/dL (3.5-5.2); Alkaline Phosphatase 58 U/L (35-105); Anion Gap 16.1 (5-19); Aspartate Amino Transferase 35 U/L (0-32); Blood Urea Nitrogen 12 mg/dL (6-20); C Reactive Protein 3.5 mg/L (0.0-4.9); Calcium 8.8 mg/dL (8.5-10.5); Carbon Dioxide 23 mmol/L (22-29); Chloride 100 mmol/L (98-107); Globulin 2.4 g/dL (1.3-4.6); Glucose 134 mg/dL (65-115); Osmolality Calculated 282 mOsm/kg (285-295); Potassium 4.1 mmol/L (3.5-5.1); Sodium 135 mmol/L (136-145); Thyroid Stimulating Hormone 0.78 uIU/mL (0.27-4.20); Total Bilirubin 0.2 mg/dL (0.15-1.2); Total Protein 6.7 g/dL (6.6-8.7)
== END 2024-05-21 13:28 | disposition home or self-care (01) ==
LOC: LAB 13:29
PROVIDERS: PCP Family Medicine; Visit Provider Clinical Nurse Specialist Adult Health
DX: R06.02 Shortness of breath (principal); R00.0 Tachycardia, unspecified; G62.9 Polyneuropathy, unspecified
CPT/HCPCS: 36415; 80053; 84443; 85025; 85378; 85651; 86038; 86140

== ENCOUNTER 2024-09-25 10:45 | Emergency (ER) | payer OTHER, SELFPAY ==
[2024-09-25 10:56] VITALS: BP 130/77; PULSE 72; RESP 18; TEMP 36.4; O2SAT 96; BMI 29.2
--- NOTE | 2024-09-25 11:43 | US_ITS ---
WS: [id number] US pelvic complete* [id number] HISTORY: Menorrhagia COMPARISON: None available. Uterus: 9.4 cm x 4.6 cm x 4.3 cm. Normal size anteverted uterus. No fibroid or mass. Endometrium: 1.2 cm. Endometrium is mildly hyperechoic with a few scattered cystic areas. No discrete mass. Small nabothian cysts. Neither ovary is definitely visualized. There is a cyst within the RIGHT adnexa measuring 2.1 x 2.5 x 3.0 cm. This may be a peritoneal inclusion cyst as it does conform to the space of the adnexa. No free fluid in the cul-de-sac. US/US pelvic complete* [id number] IMPRESSION: 1. Mildly prominent and hyperechoic endometrium with a few scattered cystic ar eas. No discrete mass. Suspect endometrial hyperplasia. 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 2. Neither ovary is identified. Small cyst in the RIGHT adnexa may be a perito hedy inclusion cyst. 3. Small nabothian cyst.
[2024-09-25 12:01] LABS: Basophils # 0.1 10^3/uL (0.0-0.1); Basophils % 1.5 %; Eosinophils # 0.2 10^3/uL (0.0-0.8); Eosinophils % 2.7 %; Hematocrit 39.7 % (36-47); Lymphocytes % 33.6 %; Mean Corpuscular Hemoglobin 31.3 pg (27-33); Mean Platelet Volume 9.8 fL (7.4-10.4); Monocytes # 0.5 10^3/uL (0.2-0.9); Monocytes % 7.5 %; Neutrophils # 3.26 10^3/uL (1.8-7.7); Neutrophils % 54.5 %; Nucleated Red Blood Cells % 0 %; Platelet Count 277 10^3/cmm (157-399); Red Blood Count 4.18 10^6/uL (3.85-5.65); Red Cell Distribution Width 11.8 % (12.1-15.1); White Blood Count 5.98 10^3/uL (3.29-11.43)
--- NOTE | 2024-09-25 12:06 | ED_ITS ---
HPI - Female Genitourinary 2 General: Chief complaint: Vaginal Bleeding Stated complaint: heavy bleeding, passing lots of clots Time Seen by Provider: 09/25/24 11:43 History of Present Illness: 44-year-old female presents emergency ro om with complaints of abdominal pain discomfort heavy vaginal bleeding most of her abdominal discomfort is suprapubic at the midline. She finished what seemed like an otherwise normal. 5 days ago 2 days after that she began to have heavy bleeding is having regular very heavy bleeding since then with passage of clots at times she denies dysuria urgency or frequency. She did see her primary care doctor they had set up for ultrasound. No lightheadedness or dizziness. Associated symptoms: Deny abdominal pain Related Data Home Medications ?Medication ?Instructions ?Recorded ?Confirmed [id number] 250 1 tab PO Q6H PRN He adache 09/25/24 09/25/24 mg-250 mg-65 mg tablet ibuprofen 200 mg tablet (Advil) 800 mg PO Q6H PRN Feve r Or Pain 09/25/24 09/25/24 potassium gluconate 600 mg (99 mg) 600 mg PO DAILY 09/25/24 tablet Previous Rx's ?Medication ?Instructions ?Recorded clonazepam 0.5 mg tablet 0.5 mg PO DAILY PRN anxiety #30 04/01/24 tabs azelastine 137 mcg (0.1 %) nasal 1 spray intranasal BI D #30 mL 05/21/24 spray metoprolol tartrate 25 mg tablet 25 mg PO BID #180 tab s 05/29/24 bupropion HCl 75 mg tablet 75 mg PO BID #60 tabs 08/28 escitalopram oxalate 20 mg tablet 20 mg PO DAILY anxie ty #90 tabs 09/10/24 tranexamic acid 650 mg tablet 1,300 mg (2 x 650 mg) PO TID 5 09/25/24 days #30 tabs Allergies Allergy/AdvReac Type Severity Reaction Status Date / Time No Known Allergies Allergy Verified 09/23/24 09:50 Review of Systems 2 Const: Denies: fever(s) or chills Card: Denies: chest pain Resp: Denies: dyspnea GI: Denies: abdominal pain : Reports: vaginal bleeding and pelvic pain; Denies: dysuria, urinary frequency or urinary urgency Musc: Denies: neck pain or back pain Skin/Breast: Denies: rash PFSH ED 2 PFSH: Medical History Appendicitis dr. cintron History of COVID-19 (~09/2020) No pertinent past medical history neghx: dm,thyroid,dvt/pe PCP: Dr. De La Rosa Hypertension She was dx 2015 but it was situational. She started metoprolol for that and her elevated HR. She stopped the metoprolol on her own in 2019. She denies any problems since that time. Surgical History Hx of lithotripsy (~2011) Family History Daughter Thyroid disease Denies family history of Colon cancer Ovarian cancer Diabetes Heart disease Hypercholesteremia Breast cancer Hypertension Uterine cancer Stroke Social History Smoking and tobacco/nicotine status: former use of tobacco/nicotine Quit status (tobacco/nicotine): has quit using Year quit tobacco: 2021 Physical Exam 2 Const: COMMON NORMALS: no acute distress GENERAL APPEARANCE: cooperative and comfortable ORIENTATION/CONSCIOUSNESS: Yes awake, Yes oriented to person, Yes oriented to place and Yes oriented to time HENMT: COMMON NORMALS: normocephalic, atraumatic and hearing grossly normal bilaterally HEAD & SCALP: normocephalic and atraumatic Resp: COMMON NORMALS: normal respiratory effort, No retractions, No use of accessory muscles and clear to auscultation bilaterally AUSCULTATION: clear to auscultation bilaterally Cardio: COMMON NORMALS: regular rate, regular rhythm and No murmurs present (Cardio) RATE: regular rate RHYTHM: regular rhythm GI: COMMON NORMALS: No hepatosplenomegaly present AUSCULTATION: Yes normoactive bowel sounds PALPATION: Yes Tenderness to palpation present (GI) (Mild suprapubic), No Guarding due to palpation present (GI) and Yes No hepatosplenomegaly present Extremity: COMMON NORMALS: normal to inspection, capillary refill normal, no clubbing, cyanosis or edema, no calf tenderness and no pedal edema Neuro: SENSORIUM/ORIENTATION: Yes oriented to person, Yes oriented to place and Yes oriented to time Skin: COMMON NORMALS: no rashes or lesions noted GENERAL SKIN EXAM: no rashes or lesions noted Course 2 Vital Signs: Vital signs: Vital Signs Temperature 97.6 F 09/25/24 10:56 Pulse Rate 72 09/25/24 14:01 Respiratory Rate 18 09/25/24 10:56 Blood Pressure 119/73 09/25/24 14:01 Pulse Oximetry 98 09/25/24 14:01 Oxygen Delivery Me thod Room Air 09/25/24 13:21 MDM - Female Medical Decision Making Ultrasound read as prominent endometrium possible endometrial hyperplasia however patient has been having periods regularly who is 44 years old[address] I discussed Dr. Hutchinson he did not feel this represented endometrial hyperplasia given the patient's current clinical setting. He recommended mended oral transischemic acid 2 tablets 3 times a day for 5 days and follow-up in the office. Medical Records I reviewed the patient's medical records. Lab Data I reviewed the patient's lab results. 09/25/24 11:49 09/25/24 11:49 Radiology Impressions Pelvis Ultrasound 09/25/24 11:43 IMPRESSION: 1. Mildly prominent and hyperechoic endometrium with a few scattered cystic areas. No discrete mass. Suspect endometrial hyperplasia. 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 2. Neither ovary is identified. Small cyst in the RIGHT adnexa may be a peritoneal inclusion cyst. 3. Small nabothian cyst. Laboratory Results WBC 5.98 10^3/uL (3.29-11.43) 09/25/24 11:49 RBC 4.18 10^6/uL (3.85-5.65) 09/25/24 11:49 Hgb 13.10 g/dL (11.27-16.99) 09/25/24 11:49 Hct 39.7 % (36-47) 09/25/24 11:49 MCV 95.0 fl (85-98) 09/25/24 11:49 MCH 31.3 pg (27-33) 09/25/24 11:49 MCHC 33.0 g/dL (30-55) 09/25/24 11:49 RDW 11.8 % (12.1-15.1) L 09/25/24 11:49 Plt Count 277 10^3/cmm (157-399) 09/25/24 11:49 MPV 9.8 fL (7.4-10.4) 09/25/24 11:49 Neut % (Auto) 54.5 % 09/25/24 11:49 Lymph % (Auto) 33.6 % 09/25/24 11:49 [place] % (Auto) 7.5 % 09/25/24 11:49 Eos % (Auto) 2.7 % 09/25/24 11:49 Baso % (Auto) 1.5 % 09/25/24 11:49 Neut # (Auto) 3.26 10^3/uL (1.8-7.7) 09/25/24 11:49 Lymph # (Auto) 2.0 10^3/uL (0.8-4.8) 09/25/24 11:49 [place] # (Auto) 0.5 10^3/uL (0.2-0.9) 09/25/24 11:49 Eos # (Auto) 0.2 10^3/uL (0.0-0.8) 09/25/24 11:49 Baso # (Auto) 0.1 10^3/uL (0.0-0.1) 09/25/24 11:49 Nucleated RBC % (auto) 0 % 09/25/24 11:49 Nucleated RBCs # 0.0 /100WBC 09/25/24 11:49 Sodium 136 mmol/L (136-145) 09/25/24 11:49 Potassium 4.4 mmol/L (3.5-5.1) 09/25/24 11:49 Chloride 103 mmol/L (98-107) 09/25/24 11:49 Carbon Dioxide 21 mmol/L (22-29) L 09/25/24 11:49 Anion Gap 16.4 (5-19) 09/25/24 11:49 BUN 17 mg/dL (6-20) 09/25/24 11:49 Creatinine 0.9 mg/dL (0.5-0.9) 09/25/24 11:49 GFR Calculation 68.7 mL/min (90-130) L 09/25/24 11:49 Glucose 93 mg/dL (65-115) 09/25/24 11:49 Calculated Osmolality 283 mOsm/kg (285-295) L 09/25/24 11:49 Calcium 9.1 mg/dL (8.5-10.5) 09/25/24 11:49 Total Bilirubin 0.2 mg/dL (0.15-1.2) 09/25/24 11:49 AST 19 U/L (0-32) 09/25/24 11:49 ALT 28 U/L (0-33) 09/25/24 11:49 Alkaline Phosphatase 56 U/L (35-105) 09/25/24 11:49 Total Protein 7.0 g/dL (6.6-8.7) 09/25/24 11:49 Albumin 4.2 g/dL (3.5-5.2) 09/25/24 11:49 Globulin 2.8 g/dL (1.3-4.6) 09/25/24 11:49 HCG, Qual Negative (Negative) 09/25/24 11:49 All radiology interpretation(s) finalized by discharge Discharge Plan Discharge Patient Disposition: Home Clinical Impression: Menometrorrhagia Condition: Stable Prescriptions: New tranexamic acid 650 mg tablet 1,300 mg PO TID 5 Days Qty: 30 0RF No Action azelastine 137 mcg (0.1 %) spray,non-aerosol 1 spray intranasal BID Qty: 30 0RF Rx Instructions: administer into each nostril bupropion HCl 75 mg tablet 75 mg PO BID Qty: 60 1RF clonazepam 0.5 mg tablet 0.5 mg PO DAILY PRN (Reason: anxiety) Qty: 30 5RF metoprolol tartrate 25 mg tablet 25 mg PO BID Qty: 180 3RF escitalopram oxalate 20 mg tablet 20 mg PO DAILY Qty: 90 1RF ibuprofen [Advil] 200 mg Tablet 800 mg PO Q6H PRN (Reason: Fever Or Pain) Goody's Migraine Relief 250-250-65 mg Tablet 1 tab PO Q6H PRN (Reason: Headache) potassium gluconate 600 mg (99 mg) Tablet 600 mg PO DAILY Discharge Orders: Discharge ED (Routine); Ordered 09/25/24 Ordered By: Giovanny Bach Referrals: Raza De La Rosa, DO [Primary Care Provider] - Discharge Diet: Usual diet Discharge Activity: Increase activity as tolerated Patient Instructions: Opioid Safety, Pain Management Activity Restrictions/Additional Instructions: Thank you for choosing [facility] for your healthcare needs today. It is very important that you follow up as instructed or that you return to the Emergency Department should you have concerns or if your condition changes or worsens in any way. You were seen in the emergency room with complaints of heavy vaginal bleeding. Medication prescribed will slow the bleeding down and should stop but it is 2 pills 3 times a day for 5 days. Case management will make arrangements for you to follow-up with gynecology. Print Language: [place] Islander Coding Level of Care Code ED Router Operator Radial for Gemma Verma
[2024-09-25 12:20] LABS: HCG, Serum Qual Negative (Negative)
[2024-09-25 12:24] LABS: Alanine Aminotransferase 28 U/L (0-33); Albumin Level 4.2 g/dL (3.5-5.2); Alkaline Phosphatase 56 U/L (35-105); Anion Gap 16.4 (5-19); Aspartate Amino Transferase 19 U/L (0-32); Blood Urea Nitrogen 17 mg/dL (6-20); Calcium 9.1 mg/dL (8.5-10.5); Carbon Dioxide 21 mmol/L (22-29); Chloride 103 mmol/L (98-107); Creatinine Clr Calc Pharmacy 75.9598; Globulin 2.8 g/dL (1.3-4.6); Glomerular Filtration Rate 68.7 mL/min (90-130); Glucose 93 mg/dL (65-115); Osmolality Calculated 283 mOsm/kg (285-295); Potassium 4.4 mmol/L (3.5-5.1); Sodium 136 mmol/L (136-145); Total Bilirubin 0.2 mg/dL (0.15-1.2)
[2024-09-25 13:21] VITALS: BP 123/69; PULSE 78; O2SAT 95
[2024-09-25 14:01] VITALS: BP 119/73; PULSE 72; O2SAT 98
--- NOTE | 2024-09-26 07:11 | DCPLANNER ---
messaged [facility] to establish care - er f/u
== END 2024-09-25 14:02 | disposition home or self-care (01) ==
PROVIDERS: Emergency Provider Family Medicine; PCP Family Medicine
DX: N92.1 Excessive and frequent menstruation with irregular cycle (principal); Z87.891 Personal history of nicotine dependence; I10 Essential (primary) hypertension
CPT/HCPCS: 36415; 76856; 80053; 84703; 85025; 99284

== ENCOUNTER → 2024-10-03 09:17 | Outpatient (BNVA) | payer OTHER, SELFPAY | PROVIDERS: PCP Family Medicine; Visit Provider Nurse Practitioner Women's Health | DX: N93.9 Abnormal uterine and vaginal bleeding, unspecified (principal); R53.83 Other fatigue; Z00.00 Encounter for general adult medical examination without abnormal findings | CPT/HCPCS: 82306; 82728; 83540; 84439; 84443; 87624 ==

== ENCOUNTER → 2024-10-07 11:18 | Outpatient (BNVA) | payer OTHER, SELFPAY | PROVIDERS: PCP Family Medicine; Visit Provider Nurse Practitioner Women's Health | DX: N93.9 Abnormal uterine and vaginal bleeding, unspecified (principal) | CPT/HCPCS: 88305 ==

== ENCOUNTER → 2024-10-15 15:37 | Outpatient (BNVA) | payer OTHER, SELFPAY | PROVIDERS: PCP Family Medicine; Visit Provider Obstetrics & Gynecology | DX: R30.0 Dysuria (principal) | CPT/HCPCS: 84315; 87086 ==

== ENCOUNTER 2024-10-28 08:29 | Day surgery (SDC) | payer MEDICAID, SELFPAY ==
[2024-10-28] VITALS (10 sets, daily range): BP systolic 77–120; BP diastolic 50–86; PULSE 71–89; RESP 6–22; TEMP 36.1–36.6; O2SAT 91–100
--- NOTE | 2024-10-28 01:15 | W.PM.OPSFHP ---
Same Day Surgery H&P Indication for Procedure/HPI DATE OF PROCEDURE: October 28, 2024 CHIEF COMPLAINT/INDICATIONFOR SURGICAL PROCEDURE: abnormal uterine bleeding PREOP DIAGNOSIS: abnormal uterine bleeding PLANNED PROCEDURE: Operation Date: 10/28/24 10:25 Proposed Procedures p Hysteroscopy Hysteroscopy w/ Endometrial Sampling(Not Applicable) - Sid Bell MD s POSSIBLE Poylpectomy(Not Applicable) - Sid Bell MD 44 y.o. with abnormal uterine bleeding Medications/Allergies* Home Medications ?Medication ?Instructions ?Recorded ?Confirmed ?Type [id number] 250 1 tab PO Q6H PRN Headache 09/25/24 10/27/24 History mg-250 mg-65 mg tablet ibuprofen 200 mg tablet (Advil) 800 mg PO Q6H PRN Fever Or Pain 09/25/24 10/27/24 History potassium gluconate 600 mg (99 mg) 600 mg PO DAILY 09/25/24 10/27/24 History tablet Allergies/Adverse Reactions Allergy/AdvReac Type Severity Reaction Status Date / Time No Known Allergies Allergy Verified 10/15/24 15:13 Pertinent History/Comorbid Conditions* Medical History (Updated 10/08/24 @ 11:55 by Raza De La Rosa DO) Appendicitis dr. cintron History of COVID-19 (~09/2020) No pertinent past medical history neghx: dm,thyroid,dvt/pe PCP: Dr. De La Rosa Hypertension She was dx 2015 but it was situational. She started metoprolol for that and her elevated HR. She stopped the metoprolol on her own in 2019. But she is now taking this again. Surgical History (Updated 10/03/24 @ 13:04 by Tiff Johansen APN, ARMANDO) History of appendectomy (~07/28/23) Laparoscopic appendectomy performed by Dr. Shan Edouard for acute appendicitis. Hx of lithotripsy (~2011) Family History (Updated 11/16/20 @ 08:23 by Livier Fisher) Thyroid disease Daughter Denies family history of Colon cancer Ovarian cancer Diabetes Heart disease Hypercholesteremia Breast cancer Hypertension Uterine cancer Stroke Social History Smoking and tobacco/nicotine status: former use of tobacco/nicotine Quit status (tobacco/nicotine): has quit using Year quit tobacco: 2021 Pertinent Exam Findings alert, oriented x 3, clear to auscultation bilaterally and regular rate & rhythm Recommendations Surgery/Procedure today Coding Level of Care Code Acute Code for Chg Fwd
[2024-10-28 08:46] LABS: OR HCG Qualitative Urine Negative (Negative)
[2024-10-28] MEDS: sodium chloride 0.9% 1,000 ML 30 ML IV (08:54)
--- NOTE | 2024-10-28 09:32 | P.ANESASSM_ITS ---
Pre-Anesthetic Assessment Height/Weight: Height 5 ft 2 in Weight 162 lb Temp Pulse Resp BP Pulse Ox O2 Del Method 97.9 F 76 16 111/70 98 Room Air 10/28/24 08:42 10/28/24 08:42 10/28/24 08:42 10/28/24 08:42 10/28/24 08:42 10/28/24 08:42 Preop Diagnosis: abnormal uterine bleeding Operation Date: 10/28/24 10:25 Proposed Procedures p Hysteroscopy Hysteroscopy w/ Endometrial Sampling(Not Applicable) - Sid Bell MD s POSSIBLE Poylpectomy(Not Applicable) - Sid Bell MD Was Beta Amanda taken within 24 hours: Yes Was Clonidine taken within 24 hours: N/A Last intake: Intake Last Liquid Date 10/27/24 Last Liquid Time 23:59 Last Solid Date 10/27/24 Last Solid Time 19:00 Social No alcohol and No tobacco Exam alert, oriented x 3, clear to auscultation bilaterally and regular rate & rhythm Airway Submandibular: within normal limits Cervical ROM: within normal limits Mallampati: Class II Dentition: full Anesthetic Plan ASA status: 2 Anesthesia: General Other: No prior issues with anesthesia NPO since yesterday evening History of hypertension on metoprolol Patient states that she most likely has sleep apnea Labs reviewed from September and acceptable for procedure. hCG negative Plan for general anesthesia Medications/Allergies Home Medications ?Medication ?Instructions ?Recorded ?Confirmed ?Last Taken ?Type azelastine 137 mcg (0.1 %) nasal 1 spray intranasal BI D #30 mL 05/21/24 10/28/24 Unknown Rx spray metoprolol tartrate 25 mg tablet 25 mg PO BID #180 tab s 05/29/24 10/28/24 10/28/24 Rx escitalopram oxalate 20 mg tablet 20 mg PO DAILY anxie ty #90 tabs 09/10/24 10/28/24 10/27/24 Rx fburcdz-vzrgsgvgikqdu-zaaiyxgy 250 1 tab PO Q6H PRN He adache 09/25/24 10/28/24 Unknown History mg-250 mg-65 mg tablet ibuprofen 200 mg tablet (Advil) 800 mg PO Q6H PRN Feve r Or Pain 09/25/24 10/28/24 09/25/24 History potassium gluconate 600 mg (99 mg) 600 mg PO DAILY 10/28/24 10/27/24 History tablet clonazepam 0.5 mg tablet 0.5 mg PO DAILY PRN anxiety #30 10/02/24 10/28/24 10/28/24 Rx tabs bupropion HCl 75 mg tablet 75 mg PO BID #60 tabs 10/2010/28/24 10/27/24 Rx Allergies Allergy/AdvReac Type Severity Reaction Status Date / Time No Known Allergies Allergy Verified 10/15/24 15:13 Current Medications Generic Name Dose Route Start Last Admin Trade Name Freq PRN Reason Stop Dose Admin Sodium Chloride 1,000 mls @ 30 mls/hr 10/28/24 08:45 10/28/24 08:54 Sodium Chloride 0.9% IV 10/29/24 08:44 30 mls/hr .Q24H YOGESH Administration PFSH Anesthesia Medical History Appendicitis dr. cintron History of COVID-19 (~09/2020) No pertinent past medical history neghx: dm,thyroid,dvt/pe PCP: Dr. De La Rosa Hypertension She was dx 2015 but it was situational. She started metoprolol for that and her elevated HR. She stopped the metoprolol on her own in 2019. But she is now taking this again. Surgical History History of appendectomy (~07/28/23) Laparoscopic appendectomy performed by Dr. Shan Edouard for acute appendicitis. Hx of lithotripsy (~2011) Family History Daughter Thyroid disease Denies family history of Colon cancer Ovarian cancer Diabetes Heart disease Hypercholesteremia Breast cancer Hypertension Uterine cancer Stroke Social History Smoking and tobacco/nicotine status: former use of tobacco/nicotine Quit status (tobacco/nicotine): has quit using Year quit tobacco: 2021 Female Reproductive History Date of last menstrual period: 10/21/24 Data Anesthesia Cardiac Studies: No Data to Display
--- NOTE | 2024-10-28 09:54 | W.PM.OPSUD ---
Surgery/Procedure H&P Update DATE OF PROCEDURE: October 28, 2024 DATE H&P PERFORMED: 10/15/24 H&P UPDATE INFORMATION: I have reviewed H&P completed within last 30 days, I have examined patient prior to procedure and No changes to prior documentation PREOP DIAGNOSIS: abnormal uterine bleeding PLANNED PROCEDURE: Operation Date: 10/28/24 10:25 Proposed Procedures p Hysteroscopy Hysteroscopy w/ Endometrial Sampling(Not Applicable) - Sid Bell MD s POSSIBLE Poylpectomy(Not Applicable) - Sid Bell MD
--- NOTE | 2024-10-28 12:05 | ANE.PACU2 ---
Inpatient post-anesthesia follow up: Airway intact: Yes Vital signs: Temperature 97 F Pulse Rate 82 Respiratory Rate 16 Blood Pressure 120/86 Pulse Oximetry 96 Oxygen Delivery Me thod Room Air Oxygen Flow Rate 8 Fraction of Inspir ed Oxygen Hydration adequate: Yes Nausea and vomiting: No Pain level: 1 Mental status: Baseline
--- NOTE | 2024-10-28 12:10 | PM.OP ---
Operative Report Date of procedure: October 28, 2024 Pre-op diagnosis: abnormal uterine bleeding Post-op diagnosis: same Post-op findings: normal endometrial cavity No polyps / fibroids Minimal endometrial tissue Procedure done: hysteroscopy Curettage of uterus Implants: none Specimens removed/disposition: endometrial curettings Surgeon: Sid Bell MD Anesthesia: MAC Estimated blood loss (mL): 0 Complications: none Findings: normal endometrial cavity No polyps / fibroids Minimal endometrial tissue Condition: stable Disposition: PACU Brief History: 44 y.o. with abnormal uterine bleeding Procedure: Informed consent signed. Patient was taken to the operating room. Anesthesia was induced. Patient was placed in dorsolithotomy position, prepped and draped for hysteroscopy. A bivalve speculum was placed in the vagina. The anterior lip of the cervix was grasped with a sharp-toothed tenaculum. The cervix was serially dilated with Hegar dilators. . A hysteroscope was placed into the endometrial cavity. The endometrial cavity was seen to be normal. There were no polyps or fibroids. There was a minimal amount of endometrial tissue. The hysteroscope was then removed. Endometrial curettage was done with a sharp curette. Endometrial tissue was sent to pathology. The sharp-toothed tenaculum was removed. There was no bleeding from the endometrial cavity or cervix. The patient was then placed supine and awakened and taken to the PACU. Postop condition: stable EBL: none Sponge and instruments counts were normal x 2 Complications: none
== END 2024-10-28 12:05 | disposition home or self-care (01) ==
PROVIDERS: PCP Family Medicine; Visit Provider Obstetrics & Gynecology
PROC: 0UJD8ZZ Inspection of Uterus and Cervix, Via Natural or Artificial Opening Endoscopic (ICD-10-PCS; CPT 58555; principal; 2024-10-28 10:25)
DX: N93.9 Abnormal uterine and vaginal bleeding, unspecified (principal); I10 Essential (primary) hypertension; Z79.82 Long term (current) use of aspirin; Z87.891 Personal history of nicotine dependence; Z79.899 Other long term (current) drug therapy
CPT/HCPCS: 58558; 81025; 88305; J1100; J1200; J2250; J2371; J2405; J2704; J3010; J3490; J7030; J9999

== ENCOUNTER → 2024-12-29 10:36 | Outpatient (BNVA) | payer OTHER, MEDICAID, SELFPAY | PROVIDERS: PCP Family Medicine; Visit Provider Family Medicine | DX: E03.9 Hypothyroidism, unspecified (principal); R20.2 Paresthesia of skin; F41.9 Anxiety disorder, unspecified; M62.838 Other muscle spasm; R53.83 Other fatigue | CPT/HCPCS: 80053; 82607; 83735; 84443; 85025 ==

== ENCOUNTER 2025-01-20 16:16 | Outpatient (CLI) | payer MEDICAID, SELFPAY | END 2025-01-20 16:17 | disposition home or self-care (01) | LOC: SLEEP 16:17 | PROVIDERS: PCP Family Medicine; Visit Provider Family Medicine | DX: G47.33 Obstructive sleep apnea (adult) (pediatric) (principal) | CPT/HCPCS: G0399 ==